=== PATIENT | female | born 1945 | race Caucasian/White ===

== ENCOUNTER 2018-02-22 14:25 | Inpatient (IN) ==
[2018-02-22] MEDS ORDERED: Naloxone 0.4 MG/ML INJ IVP PRN (16:07)
--- NOTE | 2018-02-22 16:23 | Pulmonology History & Physical ---
<Vilma Olsen M - Last Filed: 02/22/18 17:34> Date of Encounter: 02/22/18 History of Present Illness HPI: Ms. Romero is a 72 year old female Medications and Allergies Aspirin Enteric Coated [Aspirin EC] 81 mg PO DAILY #30 tablet.dr 12/13/15 [Rx] Furosemide [Lasix] 40 mg PO DAILY #30 tablet 12/13/15 [Rx] Metoprolol [Lopressor] 100 mg PO BID #60 tablet 12/13/15 [Rx] Diltiazem CD (24hr) [Cardizem CD] 120 mg PO DAILY #30 cap.er.24h 01/14/16 [Rx] Warfarin [Coumadin] 2.5 mg PO SUMOWETHFR 02/22/18 [History] Warfarin [Coumadin] 5 mg PO TUSA 02/22/18 [History] 3 Allergy/AdvReac Type Severity Reaction Status Date / Time No Known Allergies Allergy Verified 12/11/15 18:23 All Systems: The remainder of the systems were reviewed and are negative Physical Examination Vital Signs: Vital Signs, Last 4 Hours Temp Pulse Resp BP Pulse Ox 02/22/18 16:50 25 99 02/22/18 16:32 97.1 F L 98 30 144/84 97 02/22/18 16:19 97.1 F L 34 134/85 94 02/22/18 16:11 98 Results - Laboratory Findings CBC and BMP: 02/22/18 16:32 02/22/18 16:32 PT/INR, D-dimer PT 11.8 Seconds (9.4-12.1) 02/22/18 16:32 Abnormal lab findings: Abnormal lab results WBC 24.7 K/mcL (4.3-11.1) H 02/22/18 16:32 RDW 17.1 % (11.5-14.5) H 02/22/18 16:32 Neutrophils # 23.1 K/mcL (1.6-8.9) H 02/22/18 16:32 Toxic Granulation Present (Not Present) A 02/22/18 16:32 Heparin Anti-Xa, Unfract 0.04 IU/mL (0.30-0.70) L 02/22/18 16:32 BUN 25 mg/dL (8-23) H 02/22/18 16:32 Est GFR ( Amer) 58 (> 60) L 02/22/18 16:32 Est GFR (Non-Af Amer) 48 (> 60) L 02/22/18 16:32 Glucose 131 mg/dL (70-105) H 02/22/18 16:32 Lactic Acid 2.4 mmol/L (0.5-2.2) H 02/22/18 16:32 Total Bilirubin 1.2 mg/dL (0.3-1.0) H 02/22/18 16:32 Globulin 3.6 g/dL (2.4-3.5) H 02/22/18 16:32 Albumin/Globulin Ratio 1.0 (1.1-2.2) L 02/22/18 16:32 - Attending Attestation I examined this patient and my medical decision-making was reviewed with the Resident Physician. I agree with the documented findings, disposition and treatment plan as described except to the extent set forth below. Patient seen and examined. Labs, radiology, chart personally reviewed. Agree with resident's history and physical, assessment, plan with following comments: DATA RECOVERY PLANNER: Patient follows commands, Pulmonary: Review chest x-ray with evidence of pulmonary edema and she is having acute hypoxic respiratory failure from that and she will need noninvasive ventilation. Cardiovascular: She needs to be on anticoagulation and cardiology is aware of patient. Since she has significant acute heart failure is not clear at this time with systolic or diastolic she will need rate control and anticoagulation. Patient was started on nitroglycerin drip and at this time is on hold and she is unlikely we will needed. GI: Nutrition per dietary and GI prophylaxis per routine Heme: DVT prophylaxis per routine ID: It is difficult to rule out pneumonia and empiric antibiotics will be considered. Renal; urine out put and renal funtion reviewed Endorcine: blood glucose is monitored Lines: all lines checked and no evidence of infections Skin: skin care to prevent pressure ulcers per nursing routine care Due to patient's underlying cardiac disease her condition could deteriorate and she will need ICU monitoring. I spent 35 min of Critical Care time with this patient. It involved decision making of high complexity to assess, manipulate, and support vital organ system failure and/or to prevent further life threatening deterioration of the patient' s condition. The time involved in the performance of separately reportable procedures was not counted toward critical care time. <Jayjay Liu - Last Filed: 02/22/18 22:01> Date of Encounter: 02/22/18 Time of Encounter: 04:00 Assessment and Plan (1) Acute respiratory failure Current visit: Yes Status: Acute - Patient came in from [facility] because of acute respiratory failure. - This could be secondary to her acute exacerbation of CHF. - patient currently does not endorse orthopnea, or HERNANDEZ - Patient currently on BiPAP with FiO2 of 60%. Qualifiers: Qualified Code(s): J96.01 - Acute respiratory failure with hypoxia (2) Acute on chronic diastolic CHF (congestive heart failure) Current visit: Yes Status: Acute - Patient has a known history of congestive heart failure. - She takes 40 mg by mouth Lasix and metoprolol(100g) at home - Patient endorses symptoms of dyspnea on exertion for the past few days . She came to the [facility] ED this morning with respiratory distress. - BNP at [facility] ~9000 , Repeat BNP: 624 Patient TSH was elevated 5.120, Echo pending , Trops : 0.05 - Currently on IV Lasix 40 mg, Strict Is/Os. (3) Atrial fibrillation with rapid ventricular response Current visit: No Status: Acute - Patient has a history of A. fib RVR. She takes 240 by mouth Cardizem at home. Takes Coumadin at home. - She endorses she took one pill of Cardizem 240 this morning. - Her CHADVaSc2 score is 4. Currently on heparin for anticoagulation. We are holding off on her Coumadin. - As per recommendation of cardiology, patient is getting amiodarone 150mg IV bolus , followed by drip 1/hr. (4) HTN (hypertension) Current visit: No Status: Acute -Patient has a past medical history of hypertension. - continue her home medication Qualifiers: Hypertension type: essential hypertension Qualified Code(s): I10 - Essential (primary) hypertension (5) DVT prophylaxis Current visit: Yes Status: Acute on heparin History of Present Illness Chief complaint: CHF exacerbation HPI: Ms. Romero is a 72 year old female with a past medical history of atrial fibrillation, congestive heart failure, hypertension and mitral valve stenosis who has been transferred from [facility] because of respiratory distress. Patient is a poor historian but endorses that she was extremely short of breath just prior to arrival to the ER. Initial workup in the [facility] ER showed her NT proBNP was 9908.8 . Her ABG was pH 7.32, PCO2 45, HCO3- 23.2. Troponins were negative , but had elevated lactic acid : 3.5 and TSH: 5.120. Patient has a known history of CHF and is on 40 mg home Lasix. She aslo has a Hx of AFib and takes Cardizem and Warfarin at home . She says she sees for her cardiac workup. I do not see a recent Echocardiogram or any Hx of heart cath in the alst 2 years. Patient has a Hx of HTN. Her echocardiogram is pending. She endorses she has been lately feeling dyspnic for the past few days. She was in the garden yesterday when she felt very short of breath. She denies any orthopnea, paroxysmal nocturnal dyspnea. She also endorses having a constant dry, nonproductive cough for the past few days. Denies any other systemic signs like fever, chills, numbness or tingling in her extremities. Cardiology has been consulted for management of the patient. Past Med Surg Social Fam HX - Past Medical History Medical history: atrial fibrillation, CHF, hypertension, valvular heart disease Psychiatric history: no psych history - Past Surgical History Surgical History: other Additional surgical history: Tubal Ligation - Social History Smoking Status: Never smoker Smokeless Tobacco Status: No Alcohol use: none Drug use: none - Family History Father Adopted: No Living Status: Hx Family Cardiac Disorders: Yes All Systems: The remainder of the systems were reviewed and are negative - Constitutional Constitutional: as per HPI - Cardiovascular Cardiovascular: as per HPI - Respiratory Respiratory: as per HPI - Gastrointestinal Gastrointestinal: as per HPI Physical Examination Vital Signs: Vital Signs, Last 4 Hours Temp Resp BP Pulse Ox 02/22/18 16:19 97.1 F L 34 134/85 94 General appearance: no acute distress Effort: mildly labored Auscultation: bilateral: wheezes, rales Percussion: bilateral: not dull Cardiovascular: irregular rhythm (no gallops, murmrus or rubs) Gastrointestinal: soft, non-tender, non-distended Extremities: no edema, pink and warm, no ischemia or petechiae Results - Laboratory Findings CBC and BMP: 02/22/18 16:32 02/22/18 16:32
[2018-02-22 16:50] LABS: Basophils # 0.1 K/mcL (0.0-0.2); Basophils % 0.2 %; Hematocrit 40.3 % (35.3-44.9); Hemoglobin 13.2 g/dL (11.5-15.4); Immature Granulocytes % 0.6 % (0-4); Lymphocytes # 0.6 K/mcL (0.6-4.6); Lymphocytes % 2.5 %; Mean Corpuscular HGB Conc 32.8 g/dL (31.6-35.5); Mean Corpuscular Volume 91.6 fL (83.0-100.0); Mean Platelet Volume 9.6 fL (9.4-12.4); Monocytes # 0.8 K/mcL (0.0-1.3); Monocytes % 3.1 %; Platelet Count 304 K/mcL (140-400); Red Cell Distribution Width 17.1 % (11.5-14.5); Segmented Neutrophils % 93.6 %
[2018-02-22] MEDS ORDERED: Potassium Phosphate 44 MEQ in 0.9 % Sodium Chloride 250 ML IVPB PRN (16:53)
[2018-02-22 16:57] LABS: Neutrophils # 23.1 K/mcL (1.6-8.9)
[2018-02-22 16:58] LABS: Prothrombin Time 11.8 Seconds (9.4-12.1)
[2018-02-22] MEDS ORDERED: Furosemide 240 MG in D5% in Water 96 ML IVC SCH (17:00)
[2018-02-22] MEDS ORDERED: *HR* Heparin 5,000 UNIT/ML VIAL IVP PRN ×2 (17:04)
[2018-02-22] MEDS ORDERED: *HR* Heparin 5,000 UNIT/ML VIAL IVP ONE (17:04)
[2018-02-22 17:11] LABS: Albumin 3.7 g/dL (3.5-5.7); Bilirubin,Total 1.2 mg/dL (0.3-1.0); Calcium 9.4 mg/dL (8.6-10.3); Globulin 3.6 g/dL (2.4-3.5); Potassium 3.5 mEq/L (3.5-5.1); Total Protein 7.3 g/dL (6.4-8.9)
[2018-02-22] MEDS ORDERED: Heparin 25,000 UNIT/500 ML D5W 25,000 UNIT/500 ML BAG IVC SCH (17:15)
[2018-02-22 17:16] LABS: Toxic Granulation Present (Not Present)
[2018-02-22 17:25] LABS: Heparin anti-factor XA UFH 0.04 IU/mL (0.30-0.70)
[2018-02-22] MEDS ORDERED: Amiodarone Premix 150 MG/100 ML BAG IVPB ONE (17:31)
[2018-02-22] MEDS ORDERED: Amiodarone Premix 360 MG/200 ML BAG IVC ONE (17:31)
[2018-02-22 17:49] LABS: VBG Ionized Calcium 1.07 mmol/L (1.15-1.35)
[2018-02-22] MEDS: Amiodarone Premix 360 MG/200 ML BAG IVC SCH ×2 (17:53→23:44)
[2018-02-22 18:09] LABS: Troponin I 0.05 ng/mL (< 0.04)
--- NOTE | 2018-02-22 20:11 | Sepsis Event Note ---
Sepsis Reassessment Note - Evaluation Sepsis Screen: Sepsis Risk Current Stage of Sepsis: severe sepsis Possible Source of Sepsis: pulmonary - Focused Exam Date of Encounter: 02/22/18 Time of Encounter: 20:11 Vital Signs: Vital Signs Temp Pulse Resp BP Pulse Ox 02/22/18 20:00 86 32 139/107 97 02/22/18 19:00 97.6 F 87 32 140/89 94 02/22/18 18:00 86 30 147/108 94 02/22/18 16:50 25 99 02/22/18 16:32 97.1 F L 98 30 144/84 97 02/22/18 16:19 97.1 F L 34 134/85 94 02/22/18 16:11 98 Respiratory Exam: Present: wheezes, rales. Absent: respiratory distress Cardiovascular Exam: Present: irregulary irregular, S1, S2 Capillary Refill: < 2 seconds Peripheral Pulse Strength: 3+ normal Peripheral Pulse Location: Radial Skin Exam: normal turgor
[2018-02-22] MEDS ORDERED: Levofloxacin 750 MG/150 ML 750 MG/150 ML BAG IVPB SCH (21:00)
[2018-02-23 04:58] LABS: ABG Base Excess 5 mEq/L (-2 to 3); ABG HCO3 29 mEq/L (21-27); ABG Oxygen Saturation 99 % (95-98); ABG PCO2 39 mmHg (35-45); ABG PH 7.47 pH Units (7.32-7.45); ABG PO2 114 mmHg (85-104); ABG TCO2 30 mEq/L (20-26)
[2018-02-23 05:35] LABS: Basophils % 0.1 %; Eosinophils % 0.1 %; Hematocrit 39.3 % (35.3-44.9); Hemoglobin 12.7 g/dL (11.5-15.4); Immature Granulocytes % 0.5 % (0-4); Lymphocytes # 0.9 K/mcL (0.6-4.6); Lymphocytes % 5.5 %; Mean Corpuscular HGB Conc 32.3 g/dL (31.6-35.5); Mean Corpuscular Hemoglobin 29.4 pg (28.0-33.3); Mean Platelet Volume 9.9 fL (9.4-12.4); Monocytes # 0.6 K/mcL (0.0-1.3); Monocytes % 3.3 %; Neutrophils # 15.3 K/mcL (1.6-8.9); Platelet Count 268 K/mcL (140-400); Red Blood Count 4.32 M/mcL (3.82-4.97); Segmented Neutrophils % 90.5 %
[2018-02-23 05:38] LABS: VBG Ionized Calcium 1.06 mmol/L (1.15-1.35)
[2018-02-23 05:55] LABS: Phosphorous 3.5 mg/dL (2.7-4.5)
[2018-02-23 06:02] LABS: Alanine Aminotransferase 6 Units/L (7-52); Albumin 3.7 g/dL (3.5-5.7); Alkaline Phosphatase 84 Units/L (34-104); Aspartate Amino Transferase 14 Units/L (13-39); BUN/Creatinine Ratio 19 (6-26); Bilirubin,Total 0.9 mg/dL (0.3-1.0); Blood Urea Nitrogen 20 mg/dL (8-23); Calcium 9.2 mg/dL (8.6-10.3); Carbon Dioxide 27 mEq/L (23-29); Chloride 103 mEq/L (98-107); Globulin 3.8 g/dL (2.4-3.5); Glucose 109 mg/dL (70-105); Osmolality,Calculated 277 (280-300); Potassium 3.7 mEq/L (3.5-5.1); Sodium 132 mEq/L (136-145); Total Protein 7.5 g/dL (6.4-8.9); eGFR For Non-African Americans 53 (> 60)
--- NOTE | 2018-02-23 07:22 | Pulmonology Progress Note ---
<Vilma Olsen M - Last Filed: 02/23/18 08:49> Date of Encounter: 02/23/18 Objective PUL Vital signs: Last Vital Signs Temp 97.5 F L 02/23/18 07:39 Pulse 96 02/23/18 08:00 Resp 20 02/23/18 08:00 BP 129/101 02/23/18 08:00 Pulse Ox 96 02/23/18 08:00 Results - Laboratory Findings CBC and BMP: 02/23/18 05:04 02/23/18 05:04 ABG ABG pH 7.47 pH Units (7.32-7.45) H 02/23/18 04:55 ABG pCO2 39 mmHg (35-45) 02/23/18 04:55 ABG pO2 114 mmHg (85-104) H 02/23/18 04:55 ABG O2 Saturation 99 % (95-98) H 02/23/18 04:55 PT/INR, D-dimer PT 11.8 Seconds (9.4-12.1) 02/22/18 16:32 Abnormal lab findings: Abnormal lab results WBC 16.9 K/mcL (4.3-11.1) H 02/23/18 05:04 RDW 17.0 % (11.5-14.5) H 02/23/18 05:04 Neutrophils # 15.3 K/mcL (1.6-8.9) H 02/23/18 05:04 Toxic Granulation Present (Not Present) A 02/22/18 16:32 Heparin Anti-Xa, Unfract 0.21 IU/mL (0.30-0.70) L 02/23/18 05:04 ABG pH 7.47 pH Units (7.32-7.45) H 02/23/18 04:55 ABG pO2 114 mmHg (85-104) H 02/23/18 04:55 ABG HCO3 29 mEq/L (21-27) H 02/23/18 04:55 ABG Total CO2 30 mEq/L (20-26) H 02/23/18 04:55 ABG O2 Saturation 99 % (95-98) H 02/23/18 04:55 ABG Base Excess 5 mEq/L (-2 to 3) H 02/23/18 04:55 Sodium 132 mEq/L (136-145) L 02/23/18 05:04 Est GFR (Non-Af Amer) 53 (> 60) L 02/23/18 05:04 Glucose 109 mg/dL (70-105) H 02/23/18 05:04 POC Glucose 117 mg/dL (70-99) H 02/22/18 23:42 Calculated Osmolality 277 (280-300) L 02/23/18 05:04 Venous Ioniz Calcium 1.06 mmol/L (1.15-1.35) L 02/23/18 05:33 ALT 6 Units/L (7-52) L 02/23/18 05:04 Troponin I 0.05 ng/mL (< 0.04) H* 02/22/18 17:12 B-Natriuretic Peptide 624 pg/mL (Less than 100) H 02/22/18 17:12 Globulin 3.8 g/dL (2.4-3.5) H 02/23/18 05:04 Albumin/Globulin Ratio 1.0 (1.1-2.2) L 02/23/18 05:04 - Microbiology Findings Microbiology Findings: Microbiology, Last 48 Hours 02/22/18 17:12 Blood Culture - Preliminary Peripheral Venipuncture Culture is incubating and being continuously monitored for growth. Final report to follow. 02/22/18 17:01 Blood Culture - Preliminary Peripheral Venipuncture Culture is incubating and being continuously monitored for growth. Final report to follow. - Clinical Findings Intake & Output: Intake & Output 02/22/18 02/23/18 02/23/18 23:59 07:59 15:59 Intake Total 450 / 450 641 / 641 240 / 240 Output Total 1950 / 1950 2300 / 2300 Balance -1500 / -1500 -1659 / -1659 240 / 240 Weight 48 kg Consult Discharge Plan - Plan Referrals: NONE,PCP [Primary Care Provider] - - Attending Attestation I examined this patient and my medical decision-making was reviewed with the Resident Physician. I agree with the documented findings, disposition and treatment plan as described except to the extent set forth below. Patient seen and examined. Labs, radiology, chart personally reviewed. Agree with resident's history and physical, assessment, plan with following comments: PASSENGER RATE CLERK: Patient follows commands, Pulmonary: Acceptable oxygenation and ventilation. Clinically pulmonary edema is improved and continue to wean off FiO2 Cardiovascular: Plan to resume home medication and waiting for cardiology recommendation. GI: Nutrition per dietary and GI prophylaxis per routine Heme: DVT prophylaxis per routine ID: Continue antibiotics and plan to de-escalation. Unlikely pneumonia and stop antibiotic Renal; urine out put and renal funtion reviewed Endorcine: blood glucose is monitored Lines: all lines checked and no evidence of infections Skin: skin care to prevent pressure ulcers per nursing routine care Most likely will transfer to floor if able to be off drips. <Mirella Liubh - Last Filed: 02/23/18 20:41> Date of Encounter: 02/23/18 Time of Encounter: 07:30 Assessment and Plan (1) Acute respiratory failure Current Visit: Yes Status: Acute - Patient came from [facility] because of acute respiratory failure. - This is likely due to her Acute on chronic CHF. - Patient currently hemodynamically stable- does not endorse orthopnea, HERNANDEZ or paroxysmal nocturnal dyspnea - Patient currently off the BiPAP-on 5L NC. Qualifiers: Respiratory failure complication: hypoxia Qualified Code(s): J96.01 - Acute respiratory failure with hypoxia (2) Acute on chronic diastolic CHF (congestive heart failure) Current Visit: Yes Status: Acute - Patient has a known history of congestive heart failure. - BNP at [facility] ~9000 , Repeat BNP: 624 Patient TSH was elevated 5.120, Echo on 02/22/18 showed EF of 60% with severe mitral stenosis , Trops : 0.05 - Patient was admitted due to HERNANDEZ, currently stable - no dyspnea, orthopnea or aproxysmal nocturnal dyspnea - Currently on home Lasix PO 40 mg BID, Cumulative Is/Os: 2191/5150. SpO2 96% (3) Atrial fibrillation with rapid ventricular response Current Visit: No Status: Acute - Patient was in A. fib RVR when she was admitted. She was rate controlled on Amodarone overnight . - Her RVR could be due to her pulmonary edema secondary to her acute on chronic CHF - She's back to her baseline Afib. As per Cardiology the plan is to put her back on Cardizem 30 mg q6h with outpatient continuation. - Her CHADVaSc2 score is 4. Currently on heparin for anticoagulation. Will hold her heparin at midnight for an EGD tomorrow - F/u with Dr Sevilla for a her Hx of severe valvular disease. (4) Dysphagia Current Visit: Yes Status: Acute - patient endorses having difficulty swallowing solid food - she has a previous diagnosis of esophageal web years ago. 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 - Patient is scheduled for her EGD tomorrow morning. We will discontinue her heparin drip at midnight. Qualifiers: Dysphagia type: esophageal phase Qualified Code(s): R13.10 - Dysphagia, unspecified (5) HTN (hypertension) Current Visit: No Status: Acute -Patient has a past medical history of hypertension. - continue her home medication Qualifiers: Hypertension type: essential hypertension Qualified Code(s): I10 - Essential (primary) hypertension (6) DVT prophylaxis Current Visit: Yes Status: Acute on heparin Subjective Principal diagnosis: CHF Interval history: No acute events overnight. Patient is no more in RVR today. She was rate controlled overnight on amiodarone 150 mg bolus with 1 per hour. She endorses no dyspnea, orthopnea, paroxysmal nocturnal dyspnea. No pedal edema appreciated. Patient complaining of not being able to swallow food this morning. She was diagnosed with esophageal web in 2016, and was supposed to follow-up for an EGD but she never did owing to insurance issues. I spoke to GI this morning and a consult has been placed, and she is scheduled for an EGD sometime tomorrow. we are going to see her heparin drip at midnight so she can have a procedure tomorrow morning. She is currently on mechanical altered textures and liquid diet . We are going to start her back on her home medications Lopressor, Cardizem Objective PUL Vital signs: Last Vital Signs Temp 97.8 F 02/23/18 04:00 Pulse 87 02/23/18 07:00 Resp 18 02/23/18 07:00 BP 144/101 02/23/18 07:00 Pulse Ox 94 02/23/18 07:00 General appearance: no acute distress, alert Effort: normal Auscultation: bilateral: clear (no rales, wheezing or ronchi) Percussion: bilateral: not dull Cardiovascular: irregular rhythm (baseline A Fib, no gallops, murmurs or rubs) Gastrointestinal: soft, non-tender, non-distended Extremities: no cyanosis, no edema, pink and warm Results - Laboratory Findings CBC and BMP: 02/23/18 05:04 02/23/18 05:04 ABG ABG pH 7.47 pH Units (7.32-7.45) H 02/23/18 04:55 ABG pCO2 39 mmHg (35-45) 02/23/18 04:55 ABG pO2 114 mmHg (85-104) H 02/23/18 04:55 ABG O2 Saturation 99 % (95-98) H 02/23/18 04:55 PT/INR, D-dimer PT 11.8 Seconds (9.4-12.1) 02/22/18 16:32 Abnormal lab findings: Abnormal lab results WBC 16.9 K/mcL (4.3-11.1) H 02/23/18 05:04 RDW 17.0 % (11.5-14.5) H 02/23/18 05:04 Neutrophils # 15.3 K/mcL (1.6-8.9) H 02/23/18 05:04 Toxic Granulation Present (Not Present) A 02/22/18 16:32 Heparin Anti-Xa, Unfract 0.21 IU/mL (0.30-0.70) L 02/23/18 05:04 ABG pH 7.47 pH Units (7.32-7.45) H 02/23/18 04:55 ABG pO2 114 mmHg (85-104) H 02/23/18 04:55 ABG HCO3 29 mEq/L (21-27) H 02/23/18 04:55 ABG Total CO2 30 mEq/L (20-26) H 02/23/18 04:55 ABG O2 Saturation 99 % (95-98) H 02/23/18 04:55 ABG Base Excess 5 mEq/L (-2 to 3) H 02/23/18 04:55 Sodium 132 mEq/L (136-145) L 02/23/18 05:04 Est GFR (Non-Af Amer) 53 (> 60) L 02/23/18 05:04 Glucose 109 mg/dL (70-105) H 02/23/18 05:04 POC Glucose 117 mg/dL (70-99) H 02/22/18 23:42 Calculated Osmolality 277 (280-300) L 02/23/18 05:04 Venous Ioniz Calcium 1.06 mmol/L (1.15-1.35) L 02/23/18 05:33 ALT 6 Units/L (7-52) L 02/23/18 05:04 Troponin I 0.05 ng/mL (< 0.04) H* 02/22/18 17:12 B-Natriuretic Peptide 624 pg/mL (Less than 100) H 02/22/18 17:12 Globulin 3.8 g/dL (2.4-3.5) H 02/23/18 05:04 Albumin/Globulin Ratio 1.0 (1.1-2.2) L 02/23/18 05:04 - Microbiology Findings Microbiology Findings: Microbiology, Last 48 Hours 02/22/18 17:12 Blood Culture - Preliminary Peripheral Venipuncture Culture is incubating and being continuously monitored for growth. Final report to follow. 02/22/18 17:01 Blood Culture - Preliminary Peripheral Venipuncture Culture is incubating and being continuously monitored for growth. Final report to follow. - Clinical Findings Intake & Output: Intake & Output 02/22/18 02/22/18 02/23/18 15:59 23:59 07:59 Intake Total 450 / 450 560 / 560 Output Total 1950 / 1950 1350 / 1350 Balance -1500 / -1500 -790 / -790 Weight 48 kg
[2018-02-23] MEDS ORDERED: Aspirin 81 MG TAB.CHEW PO SCH (09:00)
[2018-02-23] MEDS ORDERED: Aspirin Enteric Coated 81 MG Tablet PO SCH (09:00)
--- NOTE | 2018-02-23 10:46 | Cardiology Consult Note ---
<Lashon Jonas - Last Filed: 02/23/18 13:57> Date of Encounter: 02/23/18 Time of Encounter: 10:36 Assessment and Plan (1) Acute on chronic diastolic CHF (congestive heart failure) Current Visit: Yes Status: Acute Patient presenting with respiratory distress with BNP at [facility] noted to be at 9000, admission labs shows BNP at 624, troponin 0.05. Patient currently stable, denies orthopnea, PND, pedal edema. Echocardiogram on 02/22/18 showed EF of 60%, severe mitral stenosis, moderate mitral regurgitation, moderate to severe TR, severe pulmonary htn, severe dilated left atrium Continue lasix, has been taken off bipap now on 5L NC, satting at 96%. continue strict I/O's (2) Atrial fibrillation with rapid ventricular response Current Visit: No Status: Acute Patient presented on 02/22/18 with atrial fibrillation with RVR, chronic atrial fibrillation. Currently, stable with asymptomatic atrial fibrillation, rate of 80 bpm. Most likely due to severe valvular disease with severe dilation of left atrium with chronic atrial fibrillation and chronic heart failure causing pulmonary edema/ acute exacerbation of HF [id number] score of 5, significant for age, sex, and medical hx. Patient on home Cardizem 120mg daily, was placed on amiodarone, agree with stopping amiodarone now. Recommend starting Cardizem 30 mg q6h with outpatient continuation, Cardizem 120mg qd. Patient on warfarin at home, was placed on heparin drip. Recommend switching to PO Coumadin per PT. Will check TSH, pending Outpatient follow up recommended, known patient of Dr. Franks, for severe valvular disease. Discussion w patient/family: The assessment and plan as outlined above was discussed with the patient and/or family members who expressed understanding and agreement. All questions were answered. Thank you for involving us in the care of your patient. Please call with any questions. History of Present Illness Consult date: 02/23/18 Requesting physician: Vilma Olsen Consult reason: Acute on chronic diastolic heart failure and Atrial fibrillation with RVR Chief complaint: Acute respiratory failure History of present illness: Ms. Romero is a 72 year old female consulted to cardiology for acute on chronic diastolic heart failure with atrial fibrillation with RVR. Patient was transferred from [facility] for respiratory distress that had been ongoing for the past few days, worsening yesterday. She states that she had been having shortness of breath with rest and exertion, with associated cough with purulent sputum. She denies chest pain, PND, orthopnea, lower extremity swelling. She states that she regularly misses her medications twice per week. Patient states that she is always in atrial fibrillation but is typically asymptomatic. Has been in atrial fibrillation with RVR in the past. At [facility], patients BNP was noted to be 9000. On admission patient was found to be in respiratory failure with acute on chronic DCHF and was found to be in afib with RVR, patient was placed on bipap, lasix, placed on amiodarone 150 bolus with 1/hr and has been rate controlled, continues to be in atrial fibrillation. BNP was 624, troponin was 0.05, with WBC elevated at 16.9. Magnesium was 2.0, K at 3.7. CXR showed perihilar airspace disease, right greater than left, suggestive of pulmonary edema. INR today is 1.0. Cardiac cath performed 01/14/16 showed moderate pulmonary hypertension and increased right atrial pressure. Cardiac cath on 12/18/15 showed mild CAD and EF of 60%, with left main LMCA 0%, LAD 30%, 1st diagonal 40%, LCA 0%/ RCA 30%. Echocardiogram 12/12/15 showed severe mitral stenosis and severe dilated left atrium. Today, patient is sitting comfortably in the chair and denies symptoms of chest pain or shortness of breath. She is currently on 5L NC, denies home oxygen. Patient currently rate controlled but continues to be in atrial fibrillation. Past Med Surg Social Fam HX - Past Medical History Medical history: atrial fibrillation, CHF, hypertension, valvular heart disease Psychiatric history: no psych history - Past Surgical History Surgical History: other Additional surgical history: Tubal Ligation - Social History Smoking Status: Never smoker Smokeless Tobacco Status: No Alcohol use: none Drug use: none - Family History Father Adopted: No Living Status: Hx Family Cardiac Disorders: Yes Medications and Allergies Aspirin Enteric Coated [Aspirin EC] 81 mg PO DAILY #30 tablet. 12/13/15 [Rx] Furosemide [Lasix] 40 mg PO DAILY #30 tablet 12/13/15 [Rx] Metoprolol [Lopressor] 100 mg PO BID #60 tablet 05/21/16 [Rx] Diltiazem CD (24hr) [Cardizem CD] 120 mg PO DAILY #30 cap.er.24h 01/14/16 [Rx] Warfarin [Coumadin] 2.5 mg PO SUMOWETHFR 02/22/18 [History] Warfarin [Coumadin] 5 mg PO TUSA 02/22/18 [History] 3 Allergy/AdvReac Type Severity Reaction Status Date / Time No Known Allergies Allergy Verified 12/11/15 18:23 All Systems Review: The remainder of the systems were reviewed and are negative - Constitutional Constitutional: no anorexia, no chills, no fatigue, no fever(s), no headache(s) , no night sweats, no stops breathing during sleep, no weakness - EENT Eyes: no blurred vision, no loss of vision - Cardiovascular Cardiovascular: as per HPI, dyspnea at rest, dyspnea on exertion, irregular heart rhythm, no chest pain at rest, no chest pain with exertion, no diaphoresis , no radiating jaw, neck or arm pain, no leg edema, no lightheadedness, no orthopnea, no palpitations, no paroxysmal nocturnal dyspnea, no syncope - Respiratory Respiratory: cough, dyspnea, no hemoptysis, no wheezing - Gastrointestinal Gastrointestinal: no abdominal pain, no diarrhea, no hematemesis, no nausea - Integumentary Integumentary: no rash - Neurological Neurological: no dizziness, no focal weakness, no numbness, no syncope Physical Examination Vital Signs, Last 4 Hours Temp Pulse Resp BP Pulse Ox 02/23/18 10:00 89 20 99 02/23/18 09:00 80 20 133/93 99 02/23/18 08:00 96 20 129/101 96 02/23/18 07:56 74 02/23/18 07:39 97.5 F L 02/23/18 07:00 87 18 144/101 94 General: Conversant, No Apparent Distress HEENT: Atraumatic, Normocephaly, Mucus Membranes Moist Neck: No JVD, Normal carotid pulses Cardiac: Normal S1 and S2 (irregularly irregular, rate ot 80, diastolic murmur heard greatest at the LLSB) Lungs: Other (Few scattered rales bialteraly bases, no wheezing, full breath sounds) Neuro: Alert and responsive, No focal deficits noted Abdomen: Soft, Non-Tender Skin: No rashes noted on visualized skin Musculoskeletal: No Chest Wall Tenderness Extremities: No Clubbing, Normal Pulses, Other (+1 LE edema bilaterally) Results 02/23/18 05:04 02/23/18 05:04 Lab Results 02/22/18 02/22/18 02/22/18 16:32 16:32 16:32 WBC 24.7 H Hgb 13.2 Hct 40.3 Plt Count 304 INR 1.0 Sodium 140 Potassium 3.5 Chloride 102 Carbon Dioxide 28 BUN 25 H Creatinine 1.13 Glucose 131 H Calcium 9.4 Magnesium Total Bilirubin 1.2 H AST 14 ALT 8 Alkaline Phosphatase 84 Troponin I B-Natriuretic Peptide 02/22/18 02/22/18 02/23/18 17:12 17:12 05:04 WBC 16.9 H Hgb 12.7 Hct 39.3 Plt Count 268 INR Sodium Potassium Chloride Carbon Dioxide BUN Creatinine Glucose Calcium Magnesium 2.0 Total Bilirubin AST ALT Alkaline Phosphatase Troponin I 0.05 H* B-Natriuretic Peptide 624 H 02/23/18 05:04 WBC Hgb Hct Plt Count INR Sodium 132 L Potassium 3.7 Chloride 103 Carbon Dioxide 27 BUN 20 Creatinine 1.03 Glucose 109 H Calcium 9.2 Magnesium Total Bilirubin 0.9 AST 14 ALT 6 L Alkaline Phosphatase 84 Troponin I B-Natriuretic Peptide - Imaging and Cardiology Chest Xray: report reviewed Echo: report reviewed - EKG Interpretation EKG results cardiology: personally reviewed (EKG on 02/22/18 with rate of 107, shows to be in atrial fibrillation with RVR, no signs of acute ischemic changes) Consult Discharge Plan - Plan Referrals: NONE,PCP [Primary Care Provider] - <Omar Robbins - Last Filed: 02/23/18 15:57> Date of Encounter: 02/23/18 - Attending Attestation I examined this patient and my medical decision-making was reviewed with the Resident Physician. I agree with the documented findings, disposition and treatment plan as described except to the extent set forth below. Admitted with CHF likely secondary to AF with RVR and known severe MS. Would recommend rate control and anticoagulation, diuresis as you are doing. Outpt. workup for possible mitral valve surgery. Assessment and Plan Discussion w patient/family: The assessment and plan as outlined above was discussed with the patient and/or family members who expressed understanding and agreement. All questions were answered. Thank you for involving us in the care of your patient. Please call with any questions. History of Present Illness History of present illness: Ms. Romero is a 72 year old female All Systems Review: The remainder of the systems were reviewed and are negative Physical Examination Vital Signs, Last 4 Hours Pulse Resp BP Pulse Ox 02/23/18 14:00 88 18 131/92 98 02/23/18 13:00 79 18 135/92 96 02/23/18 12:00 78 18 137/93 97 Results 02/23/18 05:04 02/23/18 05:04 Lab Results 02/22/18 02/22/18 02/22/18 16:32 16:32 16:32 WBC 24.7 H Hgb 13.2 Hct 40.3 Plt Count 304 INR 1.0 Sodium 140 Potassium 3.5 Chloride 102 Carbon Dioxide 28 BUN 25 H Creatinine 1.13 Glucose 131 H Calcium 9.4 Magnesium Total Bilirubin 1.2 H AST 14 ALT 8 Alkaline Phosphatase 84 Troponin I B-Natriuretic Peptide TSH 02/22/18 02/22/18 02/23/18 17:12 17:12 05:04 WBC 16.9 H Hgb 12.7 Hct 39.3 Plt Count 268 INR Sodium Potassium Chloride Carbon Dioxide BUN Creatinine Glucose Calcium Magnesium 2.0 Total Bilirubin AST ALT Alkaline Phosphatase Troponin I 0.05 H* B-Natriuretic Peptide 624 H TSH 02/23/18 02/23/18 05:04 05:04 WBC Hgb Hct Plt Count INR Sodium 132 L Potassium 3.7 Chloride 103 Carbon Dioxide 27 BUN 20 Creatinine 1.03 Glucose 109 H Calcium 9.2 Magnesium Total Bilirubin 0.9 AST 14 ALT 6 L Alkaline Phosphatase 84 Troponin I B-Natriuretic Peptide TSH 3.139
[2018-02-23] MEDS ORDERED: Diltiazem CD (24hr) 120 MG CAPSULE PO SCH (11:15)
[2018-02-23 11:22] LABS: Thyroid Stimulating Hormone 3.139 mcIU/mL (0.340-5.600)
--- NOTE | 2018-02-23 12:40 | Gastroenterology Consult Note ---
<Ricarda Cheng M - Last Filed: 02/23/18 12:35> Date of Encounter: 02/23/18 Time of Encounter: 11:30 - Assessment and plan (1) Dysphagia Current Visit: Yes Status: Acute Assessment and plan: Pt admits to dysphagia for at least the past year. She denies EGD. Will proceed with EGD with possible dilation tomorrow. She is on heparin drip needs held at midnight, can start coumadin tomorrow. Qualifiers: Dysphagia type: esophageal phase Qualified Code(s): R13.10 - Dysphagia, unspecified - Time Spent With Patient Total time spent is greater than 50% in coordination of care (as documented) at patient's floor/unit and/or counseling patient: GI History of Present Illness - Data of Consult Patient: new to practice Consult date: 02/23/18 Requesting Physician: Hi Zamora - Consult Narrative Reason for consult: dysphagia History of present illness: Ms. Romero is a 72 year old female with a past medical history of atrial fibrillation, congestive heart failure, hypertension and mitral valve stenosis who has been transferred from [facility] because of respiratory distress. She was in the garden yesterday when she felt very short of breath. She denies any orthopnea, paroxysmal nocturnal dyspnea. She also endorses having a constant dry, nonproductive cough for the past few days. Denies any other systemic signs like fever, chills, numbness or tingling in her extremities. Pt is complaiining of dsphagia. She has a history of esophageal web but has not had EGD, therefore GI was consulted. According to nursing staff she did not follow up for EGD as she did not have insurance and had not been able to afford her maintenance medications as well. She states she has dysphagia with solid foods but is able to swallow liquids and soft foods. She denies GERD. She denies previous scopes. Past Med Surg Social Fam HX - Past Medical History Medical history: atrial fibrillation, CHF, hypertension, valvular heart disease Psychiatric history: no psych history - Past Surgical History Surgical History: other Additional surgical history: Tubal Ligation - Social History Smoking Status: Never smoker Smokeless Tobacco Status: No Alcohol use: none Drug use: none - Family History Father Adopted: No Living Status: Hx Family Cardiac Disorders: Yes Review of Systems: GI: as per [facility] GENERAL: denies fever or chills EYES: denies yellow discoloration ENT: see HPI CARDIO: denies chest pain, palpitations RESP: No Shortness of breath with exertion : denies change in color of urine NEURO: weakness HEME: Denies any bruising MS: denies joint pain, joint swelling or back pain. DERM: denies rash or itching PSYCH: Denies history of anxiety or depression - Constitutional Vitals: Temp Pulse Resp BP Pulse Ox 97.5 F L 78 18 137/93 97 02/23/18 07:39 02/23/18 12:00 02/23/18 12:00 02/23/18 12:00 02/23/18 12:00 Exam: CONSTITUTIONAL:~alert, no acute distress.~HEAD:~normocephalic.~EYES:~no jaundice.~NECK:~no obvious swelling.~HEART:~regular rate and rhythm, Murmur NOTED.~LUNGS:~bilateral POOR air entry.~ABDOMEN:~non distended, soft, non tender , no masses palpable, no organomegaly.~RECTAL EXAM:~Deferred.~EXTREMITIES:~no clubbing, cyanosis, 1+ ble edema.~SKIN:~no stigmata of chronic liver disease.~ NEUROLOGIC:~no obvious focal defect.~~~~ Results - Labs CBC & Chem 7: 02/23/18 05:04 02/23/18 05:04 Labs: Last Result Calcium 9.2 mg/dL (8.6-10.3) 02/23/18 05:04 Troponin I 0.05 ng/mL (< 0.04) H* 02/22/18 17:12 Entire Visit Hgb 12.7 g/dL (11.5-15.4) 02/23/18 05:04 Hct 39.3 % (35.3-44.9) 02/23/18 05:04 PT 11.8 Seconds (9.4-12.1) 02/22/18 16:32 Total Bilirubin 0.9 mg/dL (0.3-1.0) 02/23/18 05:04 AST 14 Units/L (13-39) 02/23/18 05:04 ALT 6 Units/L (7-52) L 02/23/18 05:04 - ABG ABG results: ABG ABG pH 7.47 pH Units (7.32-7.45) H 02/23/18 04:55 ABG pCO2 39 mmHg (35-45) 02/23/18 04:55 ABG pO2 114 mmHg (85-104) H 02/23/18 04:55 ABG O2 Saturation 99 % (95-98) H 02/23/18 04:55 PT/INR, D-dimer PT 11.8 Seconds (9.4-12.1) 02/22/18 16:32 - Impressions Impressions Chest X-Ray 02/22/18 16:08 IMPRESSION: Cardiomegaly with bilateral airspace disease, likely pulmonary edema. D/ / Yashira Stanton Cha, MD / Yashira Stanton Cha, MD Interpreting Provider: Yashira Stanton Cha, MD Echocardiogram 02/22/18 17:03 Impressions: LVEF 60%. Mild concentric left ventricular hypertrophy. Indeterminate diastolic function. Normal right ventricular size with mild reduction in function. Very severely dilated left atrium. Moderately dilated right atrium. Mild aortic regurgitation. Moderate mitral regurgitation. Severe mitral stenosis, MG 15 mmHg at 86 bpm. Moderate-severe tricuspid regurgitation. Mild pulmonic regurgitation. No evidence of PFO with agitated saline contrast. Estimated RVSP is 92 mmHg. Severe pulmonary hypertension. Left Ventricular Wall Motion: Rest Echo Findings The apex, apical anterior and apical lateral jimenez were not visualized. All other wall segments showed normal motion. Findings: Study Quality * Technically adequate exam. ECG Findings * Atrial fibrillation. Left Ventricle * LVEF 60%. * Mild concentric left ventricular hypertrophy. * Indeterminate diastolic function. Right Ventricle * Normal right ventricular size with mild reduction in function. Left Atrium * Very severely dilated left atrium. Right Atrium * Moderately dilated right atrium. Aortic Valve * Trileaflet aortic valve. * No aortic stenosis. * Mild aortic regurgitation. Mitral Valve * Moderate mitral regurgitation. * Severe mitral stenosis, MG 15 mmHg at 86 bpm. * Severely thickened/calcified mitral valve leaflets with severe restriction in leaflet excursion. Tricuspid Valve * Moderate-severe tricuspid regurgitation. * No tricuspid stenosis. * Mildly calcified leaflets. * Estimated RA pressure is 8 mmHg. * Estimated RVSP is 92 mmHg. * Severe pulmonary hypertension. Pulmonic Valve * Pulmonic valve is not well visualized. * No pulmonic stenosis. * Mild pulmonic regurgitation. Pulmonary Artery * Pulmonary artery not well visualized. Aorta * Normally sized aortic root. Pericardium * There is no pericardial effusion present. Interatrial Septum * No evidence of PFO by color Doppler. * No evidence of PFO with agitated saline contrast. IVC * < 50% respiratory change. * The IVC is not dilated. Chest X-Ray 02/23/18 06:08 IMPRESSION: No significant change in predominantly perihilar airspace disease, right greater than left, most compatible with pulmonary edema. D/ / Davey Rubio MD / Davey Rubio MD Interpreting Provider: Davey Rubio MD Consult Discharge Plan - Plan Referrals: NONE,PCP [Primary Care Provider] - <Imtiaz Sagastume - Last Filed: 02/23/18 17:39> Date of Encounter: 02/23/18 Time of Encounter: 13:00 - Time Spent With Patient Total time spent is greater than 50% in coordination of care (as documented) at patient's floor/unit and/or counseling patient: GI History of Present Illness - Data of Consult Requesting Physician: Hi Zamora - Consult Narrative History of present illness: Ms. Romero is a 72 year old female - Constitutional Vitals: Temp Pulse Resp BP Pulse Ox 98.8 F 89 16 137/83 95 02/23/18 16:40 02/23/18 16:40 02/23/18 16:40 02/23/18 16:40 02/23/18 16:40 Results - Labs CBC & Chem 7: 02/23/18 05:04 02/23/18 05:04 Labs: Last Result Calcium 9.2 mg/dL (8.6-10.3) 02/23/18 05:04 Troponin I 0.05 ng/mL (< 0.04) H* 02/22/18 17:12 Entire Visit Hgb 12.7 g/dL (11.5-15.4) 02/23/18 05:04 Hct 39.3 % (35.3-44.9) 02/23/18 05:04 PT 11.8 Seconds (9.4-12.1) 02/22/18 16:32 Total Bilirubin 0.9 mg/dL (0.3-1.0) 02/23/18 05:04 AST 14 Units/L (13-39) 02/23/18 05:04 ALT 6 Units/L (7-52) L 02/23/18 05:04 - ABG ABG results: ABG ABG pH 7.47 pH Units (7.32-7.45) H 02/23/18 04:55 ABG pCO2 39 mmHg (35-45) 02/23/18 04:55 ABG pO2 114 mmHg (85-104) H 02/23/18 04:55 ABG O2 Saturation 99 % (95-98) H 02/23/18 04:55 PT/INR, D-dimer PT 11.8 Seconds (9.4-12.1) 02/22/18 16:32 - Impressions Impressions Chest X-Ray 02/22/18 16:08 IMPRESSION: Cardiomegaly with bilateral airspace disease, likely pulmonary edema. D/ / Yashira Stanton Cha, MD / Yashira Stanton Cha, MD Interpreting Provider: Yashira Stanton Cha, MD Echocardiogram 02/22/18 17:03 Impressions: LVEF 60%. Mild concentric left ventricular hypertrophy. Indeterminate diastolic function. Normal right ventricular size with mild reduction in function. Very severely dilated left atrium. Moderately dilated right atrium. Mild aortic regurgitation. Moderate mitral regurgitation. Severe mitral stenosis, MG 15 mmHg at 86 bpm. Moderate-severe tricuspid regurgitation. Mild pulmonic regurgitation. No evidence of PFO with agitated saline contrast. Estimated RVSP is 92 mmHg. Severe pulmonary hypertension. Left Ventricular Wall Motion: Rest Echo Findings The apex, apical anterior and apical lateral jimenez were not visualized. All other wall segments showed normal motion. Findings: Study Quality * Technically adequate exam. ECG Findings * Atrial fibrillation. Left Ventricle * LVEF 60%. * Mild concentric left ventricular hypertrophy. * Indeterminate diastolic function. Right Ventricle * Normal right ventricular size with mild reduction in function. Left Atrium * Very severely dilated left atrium. Right Atrium * Moderately dilated right atrium. Aortic Valve * Trileaflet aortic valve. * No aortic stenosis. * Mild aortic regurgitation. Mitral Valve * Moderate mitral regurgitation. * Severe mitral stenosis, MG 15 mmHg at 86 bpm. * Severely thickened/calcified mitral valve leaflets with severe restriction in leaflet excursion. Tricuspid Valve * Moderate-severe tricuspid regurgitation. * No tricuspid stenosis. * Mildly calcified leaflets. * Estimated RA pressure is 8 mmHg. * Estimated RVSP is 92 mmHg. * Severe pulmonary hypertension. Pulmonic Valve * Pulmonic valve is not well visualized. * No pulmonic stenosis. * Mild pulmonic regurgitation. Pulmonary Artery * Pulmonary artery not well visualized. Aorta * Normally sized aortic root. Pericardium * There is no pericardial effusion present. Interatrial Septum * No evidence of PFO by color Doppler. * No evidence of PFO with agitated saline contrast. IVC * < 50% respiratory change. * The IVC is not dilated. Chest X-Ray 02/23/18 06:08 IMPRESSION: No significant change in predominantly perihilar airspace disease, right greater than left, most compatible with pulmonary edema. D/ / Davey Rubio MD / Davey Rubio MD Interpreting Provider: Davey Rubio MD - Attending Attestation I have personally performed a face to face evaluation on this patient. I have reviewed and agree with the care plan. History and Exam by me shows: Patient seen. Patient with complaint of dysphagia mostly for solid along with weight loss. Recommendation: EGD to rule out esophageal causes for her dysphagia. If no acute abnormality found then may need empiric dilation.
[2018-02-23] MEDS ORDERED: Heparin 25,000 UNIT/500 ML D5W 25,000 UNIT/500 ML BAG IVC SCH ×2 (13:18→14:30)
[2018-02-23] MEDS ORDERED: Naloxone 0.4 MG/ML INJ IVP PRN ×2 (13:18→14:23)
[2018-02-23] MEDS ORDERED: *HR* Heparin 5,000 UNIT/ML VIAL IVP PRN ×4 (13:18→14:22)
[2018-02-23] MEDS ORDERED: Potassium Phosphate 44 MEQ in 0.9 % Sodium Chloride 250 ML IVPB PRN (13:18)
[2018-02-23] MEDS ORDERED: Warfarin perPT PO PRN (18:00)
[2018-02-23] MEDS: Furosemide 40 MG TABLET PO SCH (22:08)
[2018-02-23] MEDS: Metoprolol 100 MG TABLET PO SCH (22:08)
--- NOTE | 2018-02-24 02:16 | Electrocardiograph Report ---
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
[2018-02-24 07:33] LABS: Basophils % 0.3 %; Eosinophils # 0.1 K/mcL (0.0-0.6); Eosinophils % 1.2 %; Hematocrit 37.5 % (35.3-44.9); Immature Granulocytes % 0.4 % (0-4); Lymphocytes # 0.8 K/mcL (0.6-4.6); Lymphocytes % 8.4 %; Mean Corpuscular Hemoglobin 29.2 pg (28.0-33.3); Mean Corpuscular Volume 91.2 fL (83.0-100.0); Mean Platelet Volume 10.1 fL (9.4-12.4); Monocytes # 0.6 K/mcL (0.0-1.3); Monocytes % 6.5 %; Neutrophils # 8.1 K/mcL (1.6-8.9); Platelet Count 279 K/mcL (140-400); Red Blood Count 4.11 M/mcL (3.82-4.97); Red Cell Distribution Width 17.2 % (11.5-14.5); Segmented Neutrophils % 83.2 %
[2018-02-24 07:50] LABS: BUN/Creatinine Ratio 23 (6-26); Blood Urea Nitrogen 24 mg/dL (8-23); Calcium 9.2 mg/dL (8.6-10.3); Carbon Dioxide 32 mEq/L (23-29); Chloride 98 mEq/L (98-107); Glucose 91 mg/dL (70-105); Osmolality,Calculated 288 (280-300); Potassium 3.7 mEq/L (3.5-5.1); Sodium 137 mEq/L (136-145); eGFR For Non-African Americans 53 (> 60)
[2018-02-24] MEDS ORDERED: *HR* Propofol 200 MG/20 ML VIAL IVP ONE (08:17)
[2018-02-24] MEDS ORDERED: Lidocaine -MPF 2% 2 ML VIAL ONE (08:17)
[2018-02-24] MEDS ORDERED: *HR* Etomidate 40 MG/20 ML VIAL IVP ONE (08:17)
[2018-02-24 08:33] LABS: INR 1.1
--- NOTE | 2018-02-24 08:59 | Anesthesia Evaluation PreOp ---
Date of Encounter: 02/24/18 Time of Encounter: 08:57 - Past History Planned Operation: EGD re: dysphagia Cardiac History: CHF, HTN, Hyperlipidemia, Arrhythmia (AFib w/ RVR. anticoagulated on Warfarin. 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 HX Other Medical History: Denies Any Significant HX Anesthesia History: No Prior Anesthetic Complications, Past Anesthesia (Tubal Ligation) Alcohol Use: none Drug use: none Medications and Allergies Aspirin Enteric Coated [Aspirin EC] 81 mg PO DAILY #30 tablet.dr 12/13/15 [Rx] Furosemide [Lasix] 40 mg PO DAILY #30 tablet 12/13/15 [Rx] Metoprolol [Lopressor] 100 mg PO BID #60 tablet 12/13/15 [Rx] Diltiazem CD (24hr) [Cardizem CD] 120 mg PO DAILY #30 cap.er.24h 01/14/16 [Rx] Warfarin [Coumadin] 2.5 mg PO SUMOWETHFR 02/22/18 [History] Warfarin [Coumadin] 5 mg PO TUSA 02/22/18 [History] 3 Allergy/AdvReac Type Severity Reaction Status Date / Time No Known Allergies Allergy Verified 12/11/15 18:23 - Meds/Allergy Pre-op Review Medications Reviewed: Yes Allergies Reviewed: Yes Beta Blockers on Current Med List: No Anesthesia Results - Labs 02/24/18 06:43 02/24/18 06:43 Laboratory Results WBC 9.8 K/mcL (4.3-11.1) 02/24/18 06:43 RBC 4.11 M/mcL (3.82-4.97) 02/24/18 06:43 Hgb 12.0 g/dL (11.5-15.4) 02/24/18 06:43 Hct 37.5 % (35.3-44.9) 02/24/18 06:43 MCV 91.2 fL (83.0-100.0) 02/24/18 06:43 MCH 29.2 pg (28.0-33.3) 02/24/18 06:43 MCHC 32.0 g/dL (31.6-35.5) 02/24/18 06:43 RDW 17.2 % (11.5-14.5) H 02/24/18 06:43 Plt Count 279 K/mcL (140-400) 02/24/18 06:43 MPV 10.1 fL (9.4-12.4) 02/24/18 06:43 Immature Gran % 0.4 % (0-4) 02/24/18 06:43 Seg Neutrophils % 83.2 % 02/24/18 06:43 Lymphocytes % 8.4 % 02/24/18 06:43 Monocytes % 6.5 % 02/24/18 06:43 Eosinophils % 1.2 % 02/24/18 06:43 Basophils % 0.3 % 02/24/18 06:43 Neutrophils # 8.1 K/mcL (1.6-8.9) 02/24/18 06:43 Lymphocytes # 0.8 K/mcL (0.6-4.6) 02/24/18 06:43 Monocytes # 0.6 K/mcL (0.0-1.3) 02/24/18 06:43 Eosinophils # 0.1 K/mcL (0.0-0.6) 02/24/18 06:43 Basophils # 0.0 K/mcL (0.0-0.2) 02/24/18 06:43 Toxic Granulation Present (Not Present) A 02/22/18 16:32 PT 12.0 Seconds (9.4-12.1) 02/24/18 08:07 INR 1.1 02/24/18 08:07 Heparin Anti-Xa, Unfract 0.27 IU/mL (0.30-0.70) L 02/23/18 18:45 Sample Site L Brach 02/23/18 04:55 ABG pH 7.47 pH Units (7.32-7.45) H 02/23/18 04:55 ABG pCO2 39 mmHg (35-45) 02/23/18 04:55 ABG pO2 114 mmHg (85-104) H 02/23/18 04:55 ABG HCO3 29 mEq/L (21-27) H 02/23/18 04:55 ABG Total CO2 30 mEq/L (20-26) H 02/23/18 04:55 ABG O2 Saturation 99 % (95-98) H 02/23/18 04:55 ABG Base Excess 5 mEq/L (-2 to 3) H 02/23/18 04:55 Dutch Test N/A 02/23/18 04:55 O2 Delivery Device BiPAP 02/23/18 04:55 Inspired O2 60.0 (1-15=lpm ix75-310=%) 02/23/18 04:55 Sodium 137 mEq/L (136-145) 02/24/18 06:43 Potassium 3.7 mEq/L (3.5-5.1) 02/24/18 06:43 Chloride 98 mEq/L (98-107) 02/24/18 06:43 Carbon Dioxide 32 mEq/L (23-29) H 02/24/18 06:43 BUN 24 mg/dL (8-23) H 02/24/18 06:43 Creatinine 1.03 mg/dL (0.60-1.20) 02/24/18 06:43 Est GFR ( Amer) > 60 (> 60) 02/24/18 06:43 Est GFR (Non-Af Amer) 53 (> 60) L 02/24/18 06:43 BUN/Creatinine Ratio 23 (6-26) 02/24/18 06:43 Glucose 91 mg/dL (70-105) 02/24/18 06:43 POC Glucose 117 mg/dL (70-99) H 02/22/18 23:42 Calculated Osmolality 288 (280-300) 02/24/18 06:43 Lactic Acid 1.7 mmol/L (0.5-2.2) 02/22/18 20:16 Calcium 9.2 mg/dL (8.6-10.3) 02/24/18 06:43 Venous Ioniz Calcium 1.06 mmol/L (1.15-1.35) L 02/23/18 05:33 Phosphorus 3.5 mg/dL (2.7-4.5) 02/23/18 05:04 Magnesium 2.0 mg/dL (1.6-2.6) 02/22/18 17:12 Total Bilirubin 0.9 mg/dL (0.3-1.0) 02/23/18 05:04 AST 14 Units/L (13-39) 02/23/18 05:04 ALT 6 Units/L (7-52) L 02/23/18 05:04 Alkaline Phosphatase 84 Units/L (34-104) 02/23/18 05:04 Troponin I 0.05 ng/mL (< 0.04) H* 02/22/18 17:12 B-Natriuretic Peptide 624 pg/mL (Less than 100) H 02/22/18 17:12 Serum Total Protein 7.5 g/dL (6.4-8.9) 02/23/18 05:04 Albumin 3.7 g/dL (3.5-5.7) 02/23/18 05:04 Globulin 3.8 g/dL (2.4-3.5) H 02/23/18 05:04 Albumin/Globulin Ratio 1.0 (1.1-2.2) L 02/23/18 05:04 TSH 3.139 mcIU/mL (0.340-5.600) 02/23/18 05:04 Impressions Echocardiogram 02/22/18 17:03 Impressions: LVEF 60%. Mild concentric left ventricular hypertrophy. Indeterminate diastolic function. Normal right ventricular size with mild reduction in function. Very severely dilated left atrium. Moderately dilated right atrium. Mild aortic regurgitation. Moderate mitral regurgitation. Severe mitral stenosis, MG 15 mmHg at 86 bpm. Moderate-severe tricuspid regurgitation. Mild pulmonic regurgitation. No evidence of PFO with agitated saline contrast. Estimated RVSP is 92 mmHg. Severe pulmonary hypertension. Left Ventricular Wall Motion: Rest Echo Findings The apex, apical anterior and apical lateral jimenez were not visualized. All other wall segments showed normal motion. Findings: Study Quality * Technically adequate exam. ECG Findings * Atrial fibrillation. Left Ventricle * LVEF 60%. * Mild concentric left ventricular hypertrophy. * Indeterminate diastolic function. Right Ventricle * Normal right ventricular size with mild reduction in function. Left Atrium * Very severely dilated left atrium. Right Atrium * Moderately dilated right atrium. Aortic Valve * Trileaflet aortic valve. * No aortic stenosis. * Mild aortic regurgitation. Mitral Valve * Moderate mitral regurgitation. * Severe mitral stenosis, MG 15 mmHg at 86 bpm. * Severely thickened/calcified mitral valve leaflets with severe restriction in leaflet excursion. Tricuspid Valve * Moderate-severe tricuspid regurgitation. * No tricuspid stenosis. * Mildly calcified leaflets. * Estimated RA pressure is 8 mmHg. * Estimated RVSP is 92 mmHg. * Severe pulmonary hypertension. Pulmonic Valve * Pulmonic valve is not well visualized. * No pulmonic stenosis. * Mild pulmonic regurgitation. Pulmonary Artery * Pulmonary artery not well visualized. Aorta * Normally sized aortic root. Pericardium * There is no pericardial effusion present. Interatrial Septum * No evidence of PFO by color Doppler. * No evidence of PFO with agitated saline contrast. IVC * < 50% respiratory change. * The IVC is not dilated. Chest X-Ray 02/23/18 06:08 IMPRESSION: No significant change in predominantly perihilar airspace disease, right greater than left, most compatible with pulmonary edema. D/ / Davey Rubio MD / Davey Rubio MD Interpreting Provider: Davey Rubio MD - Imaging EKG: image reviewed (107bpm - Interpretive Statements ATRIAL FIBRILLATION WITH RAPID VENTRICULAR RESPONSE SEPTAL MYOCARDIAL INFARCTION, OF INDETERMINATE AGE Electronically Signed On 02-23-2018 16:12:09 EDT by Darcie Bunn) Anesthesia Exam Vital Signs Temp Pulse Resp BP Pulse Ox 02/24/18 08:34 97.9 F 82 16 139/88 95 02/24/18 07:14 97.9 F 69 16 131/81 99 02/24/18 04:26 97.7 F 74 15 110/68 92 02/24/18 00:09 97.3 F L 72 16 121/78 95 02/23/18 19:09 98.7 F 107 18 141/85 92 02/23/18 16:40 98.8 F 89 16 137/83 95 02/23/18 14:00 88 18 131/92 98 02/23/18 13:00 79 18 135/92 96 02/23/18 12:00 78 18 137/93 97 02/23/18 11:00 88 20 146/96 99 02/23/18 10:00 89 20 99 Intake and Output 02/23/18 02/24/18 02/24/18 23:59 07:59 15:59 Intake Total 277 / 277 Balance 277 / 277 Intake: IV Fluids 157 / 157 Heparin 25,000 UNIT/500 ML D5W 157 / 157 25,000 unit In 500 ml @ 14 UNIT /KG/HR 15.764 mls/hr IVC .Q24H ANDRES Rx#:[id number] Oral 120 / 120 Other: Meal Dinner Percent of Meal Consumed 10% # Voids 1 Weight 46.357 kg Patient Weight 02/24/18 23:59 Weight 46.357 kg Height: 4'11" Weight: 102# BMI = 20.6 NPO (# of Hours): MNOc - HEENT Pupil (Motor): Pupils equal, EOMI Mallampati: II Teeth: Edentulous Oral Opening: Greater than 3 - GROUP TEACHER LOC: Oriented GROUP TEACHER Motor: Normal RUE, Normal LUE, Normal RLE, Normal LLE, Normal Face GROUP TEACHER Sensory: Normal: RUE, LUE, RLE, LLE, Face - Cardiac Rhythm: Irregular JVD: No - Pulmonary Breath Sounds: bilateral Clear Respiratory Effort: Symmetrical Anesthesia Assess/Plan ASA Score: 4 (SEVERE PulmHtn, AFib, CHF, Htn, Severe Mitral ValveDz) Modified Sophia Scale for Level of Consciousness: Cooperative, oriented, and tranquil Anesthetic Plan: MAC Monitoring Plan: Standard Monitors Recovery Plan: Other Anes Supervising Prov Stmt: Pt seen/evaluated, R&B Discussed, questions answered and consent obtained. Jerad Hardy MD
[2018-02-24] MEDS ORDERED: Furosemide 40 MG TABLET PO SCH ×3 (09:00)
[2018-02-24] MEDS ORDERED: Aspirin 81 MG TAB.CHEW PO SCH (09:00)
--- NOTE | 2018-02-24 10:18 | Cardiology Progress Note ---
Date of Encounter: 02/24/18 Time of Encounter: 10:17 Assessment and Plan (1) Acute on chronic diastolic CHF (congestive heart failure) Current Visit: Yes Status: Acute Patient presenting with respiratory distress with BNP at [place] noted to be at 9000, admission labs shows BNP at 624, troponin 0.05. Patient remains stable continues to be asymptomatic Echocardiogram on 02/22/18 showed EF of 60%, severe mitral stenosis, moderate mitral regurgitation, moderate to severe TR, severe pulmonary htn, severe dilated left atrium Continue lasix, continuation outpatient recommended, has been taken off bipap now on 2.5L NC, satting at 99%. continue strict I/O's (2) Atrial fibrillation with rapid ventricular response Current Visit: No Status: Acute Patient presented on 02/22/18 with atrial fibrillation with RVR, chronic atrial fibrillation. Currently, stable with asymptomatic atrial fibrillation, rate of 78 bpm. Most likely due to severe valvular disease with severe dilation of left atrium with chronic atrial fibrillation and chronic heart failure causing pulmonary edema/ acute exacerbation of HF [id number] score of 5, significant for age, sex, and medical hx. Patient on home Cardizem 120mg daily, was placed on amiodarone, continue D/C amiodarone. On Cardizem 30 mg q6h with outpatient continuation, Cardizem 120mg qd PO home. Recommend switching to PO Coumadin per PT, Per GI, continue to hold until Tuesday until repeat EGD. Continuation of PO coumadin at home Outpatient follow up established to see Dr. Sevilla's, for severe valvular disease , to discuss valve replacement options Discussion w patient/family: The assessment and plan as outlined above was discussed with the patient and/or family members who expressed understanding and agreement. All questions were answered. Thank you for involving us in the care of your patient. Please call with any questions. Subjective Principal diagnosis: CHF Interval history: Patient continues to do well today without chest pain, palpitations. Was supposed to have endoscopy today however, started to desat and procedure was stopped. Will be repeated on Tuesday. Patient is in understanding. Discussed with the patient echocardiogram results and follow up with Dr. Sevilla, she would like to have outpatient follow up for valve replacement options as she states she is now ready to proceed if necessary. Patient continues to have sob when walking, states that if not wearing oxygen she begins to desat. Objective Vital Signs, Last 4 Hours Temp Pulse Resp BP Pulse Ox 02/24/18 08:34 97.9 F 82 16 139/88 95 02/24/18 07:14 97.9 F 69 16 131/81 99 General: Conversant, No Apparent Distress HEENT: Atraumatic, Normocephaly, Mucus Membranes Moist Neck: No JVD, Normal carotid pulses Cardiac: Normal S1 and S2 (irregularly irregular, normal rate), No Murmur Lungs: Normal Breath Sounds, No Wheeze, Rales, Rhonchi Neuro: Alert and responsive, No focal deficits noted Abdomen: Soft, Non-Tender Skin: No rashes noted on visualized skin Musculoskeletal: No Chest Wall Tenderness Extremities: No Cyanosis, No Edema, Normal Pulses Results 02/24/18 06:43 02/24/18 06:43 Lab Results 02/23/18 02/24/18 02/24/18 05:04 06:43 06:43 WBC 9.8 Hgb 12.0 Hct 37.5 Plt Count 279 INR Sodium 137 Potassium 3.7 Chloride 98 Carbon Dioxide 32 H BUN 24 H Creatinine 1.03 Glucose 91 Calcium 9.2 TSH 3.139 02/24/18 08:07 WBC Hgb Hct Plt Count INR 1.1 Sodium Potassium Chloride Carbon Dioxide BUN Creatinine Glucose Calcium TSH - Imaging and Cardiology Chest Xray: report reviewed Echo: report reviewed - EKG Interpretation EKG results cardiology: personally reviewed Consult Discharge Plan - Plan Referrals: NONE,PCP [Primary Care Provider] -
[2018-02-24] MEDS: Metoprolol 100 MG TABLET PO SCH ×2 (11:16→21:17)
[2018-02-24] MEDS: Furosemide 40 MG TABLET PO SCH ×2 (11:16→17:12)
[2018-02-24] MEDS: Aspirin 81 MG TAB.CHEW PO SCH (11:16)
[2018-02-24] MEDS ORDERED: *HR* Heparin 5,000 UNIT/ML VIAL IVP ONE (15:35)
[2018-02-24] MEDS ORDERED: *HR* Heparin 5,000 UNIT/ML VIAL IVP PRN ×2 (15:35)
--- NOTE | 2018-02-24 16:18 | Internal Med Progress Note ---
Hospitalist Progress Note - Encounter Date of Encounter: 02/24/18 Time of Encounter: 16:15 - Subjective Interval History: Patient is on 3 L nasal cannula oxygen. Sitting on bed comfortably. Family at bedside. Back from upper GI endoscope procedure but dilatation could not get done as patient was desaturating. Patient denies fever chills nausea vomiting headache dizziness chest pain short of breath abdominal pain urinary bowel complaint. Review of the lab and reviewed the area development consultant notes. - Exam Vitals: Temp Pulse Resp BP Pulse Ox 98.0 F 60 18 130/76 97 02/24/18 16:12 02/24/18 16:12 02/24/18 16:12 02/24/18 16:12 02/24/18 16:12 Exam: General appearance: No acute distress, A&O X 3. Oxygen by nasal cannula 3 L. Head exam: Atraumatic Eye exam: EOMI, PERRLA ENT exam: Moist oral mucosa Neck nontender, supple Respiratory exam: Slight diminished bilaterally Cardiovascular exam: Irregularly irregular rhythm with normal rate, no systolic murmur Abdominal exam: Soft, nontender, nondistended, positive bowel sounds Extremities exam: No calf tenderness, no pedal edema Present: Neurological exam: CN II-XII intact, no focal deficits. No facial droop. Normal speech. Normal gait. - Assessment and Plan (1) Acute on chronic diastolic CHF (congestive heart failure) Current Visit: Yes Status: Acute Assessment and Plan: Patient was transferred from [facility] with respiratory distress and very high BNP. Echocardiogram with EF 60%, severe MS, moderate MR, moderate to CVR TR, severe pulmonary hypertension, severe dilated left atrium. Continue Lasix with a strict I&O's. Earlier patient was on BiPAP that was taken off and weaning down to oxygen by nasal cannula. (2) Atrial fibrillation with rapid ventricular response Current Visit: No Status: Acute Assessment and Plan: Acute on chronic A. fib with RVR. Stable while on Cardizem 30 mg every 6 hours and heparin drip. Patient was on Coumadin initially but says to heparin drip as there was planned for GI procedure. Will continue heparin drip to Tuesday until repeat EGD. Plan to discharge patient on Cardizem 120 mg by mouth daily, Coumadin with follow-up in Coumadin clinic. Follow-up with for severe valvular disease to discuss valve replacement options (3) HTN (hypertension) Current Visit: No Status: Acute Assessment and Plan: Well-controlled continue current regime with close monitoring (4) Acute respiratory failure Current Visit: Yes Status: Acute Assessment and Plan: Due to acute on chronic CHF. Improving. (5) DVT prophylaxis Current Visit: Yes Status: Acute Assessment and Plan: On heparin drip. (6) Dysphagia Current Visit: Yes Status: Acute Assessment and Plan: Dysphagia for solid food. Previous history of a oesophageal web years ago. Patient had EGD today with severe stricture finding but the limitation could not performed as patient has desaturation. Plan to repeat EGD on Tuesday and tell them continue IV heparin drip. GI on board - Time Spent with Patient Total time spent is greater than 50% in coordination of care (as documented) at patient's floor/unit and/or counseling patient: 25 - 35 minutes Plan of Care Discussed with: family Internal Medicine: Result - Labs CBC & Chem 7: 02/24/18 06:43 02/24/18 06:43 Labs: Short CBC 02/24/18 Range/Units 06:43 WBC 9.8 (4.3-11.1) K/mcL Hgb 12.0 (11.5-15.4) g/dL Hct 37.5 (35.3-44.9) % Plt Count 279 (140-400) K/mcL Neutrophils # 8.1 (1.6-8.9) K/mcL BMP 02/24/18 06:43 Sodium 137 Potassium 3.7 Chloride 98 Carbon Dioxide 32 H BUN 24 H Creatinine 1.03 Glucose 91 Calcium 9.2 - ABG Interpretation ABG results: ABG ABG pH 7.47 pH Units (7.32-7.45) H 02/23/18 04:55 ABG pCO2 39 mmHg (35-45) 02/23/18 04:55 ABG pO2 114 mmHg (85-104) H 02/23/18 04:55 ABG O2 Saturation 99 % (95-98) H 02/23/18 04:55 PT/INR, D-dimer PT 12.0 Seconds (9.4-12.1) 02/24/18 08:07 Consult Discharge Plan - Plan Referrals: NONE,PCP [Primary Care Provider] - (3) HTN (hypertension) Qualifiers: Hypertension type: essential hypertension Qualified Code(s): I10 - Essential (primary) hypertension (4) Acute respiratory failure Qualifiers: Respiratory failure complication: hypoxia Qualified Code(s): J96.01 - Acute respiratory failure with hypoxia (6) Dysphagia Qualifiers: Dysphagia type: esophageal phase Qualified Code(s): R13.10 - Dysphagia, unspecified
[2018-02-24] MEDS: Heparin 25,000 UNIT/500 ML D5W 25,000 UNIT/500 ML BAG IVC SCH (17:10)
[2018-02-24] MEDS ORDERED: *HR* Warfarin 5 MG TABLET PO ONE (18:00)
[2018-02-24] MEDS ORDERED: Warfarin perPT PO PRN (18:00)
[2018-02-25 06:40] LABS: Basophils % 0.5 %; Eosinophils # 0.2 K/mcL (0.0-0.6); Eosinophils % 2.6 %; Hematocrit 36.7 % (35.3-44.9); Hemoglobin 11.7 g/dL (11.5-15.4); Immature Granulocytes % 0.5 % (0-4); Lymphocytes # 1.3 K/mcL (0.6-4.6); Lymphocytes % 16.3 %; Mean Corpuscular HGB Conc 31.9 g/dL (31.6-35.5); Mean Corpuscular Hemoglobin 29.4 pg (28.0-33.3); Mean Corpuscular Volume 92.2 fL (83.0-100.0); Monocytes # 0.5 K/mcL (0.0-1.3); Monocytes % 5.6 %; Neutrophils # 5.9 K/mcL (1.6-8.9); Platelet Count 270 K/mcL (140-400); Red Blood Count 3.98 M/mcL (3.82-4.97); Red Cell Distribution Width 16.9 % (11.5-14.5); Segmented Neutrophils % 74.5 %
[2018-02-25 06:46] LABS: Prothrombin Time 11.6 Seconds (9.4-12.1)
[2018-02-25 06:55] LABS: BUN/Creatinine Ratio 25 (6-26); Blood Urea Nitrogen 25 mg/dL (8-23); Calcium 9.1 mg/dL (8.6-10.3); Carbon Dioxide 30 mEq/L (23-29); Chloride 99 mEq/L (98-107); Glucose 90 mg/dL (70-105); Osmolality,Calculated 284 (280-300); Potassium 4.3 mEq/L (3.5-5.1); Sodium 135 mEq/L (136-145); eGFR For Non-African Americans 54 (> 60)
[2018-02-25] MEDS: Metoprolol 100 MG TABLET PO SCH ×2 (07:36→20:04)
[2018-02-25] MEDS: Furosemide 40 MG TABLET PO SCH ×2 (08:40→16:56)
[2018-02-25] MEDS: Aspirin 81 MG TAB.CHEW PO SCH (08:40)
--- NOTE | 2018-02-25 11:56 | Internal Med Progress Note ---
Hospitalist Progress Note - Encounter Date of Encounter: 02/25/18 Time of Encounter: 11:51 - Subjective Interval History: Patient is on 2.5 L nasal cannula oxygen and oxygen saturation 97%. Sitting on bed comfortably. Patient denies fever chills nausea vomiting headache dizziness chest pain short of breath abdominal pain urinary bowel complaint. Review of the lab and - Exam Vitals: Temp Pulse Resp BP Pulse Ox 97.8 F 56 17 129/74 99 02/25/18 07:54 02/25/18 07:54 02/25/18 07:54 02/25/18 07:54 02/25/18 07:54 Exam: General appearance: No acute distress, A&O X 3 Eye exam: EOMI, PERRLA Neck nontender, supple Respiratory exam: Clear to auscultation bilaterally Cardiovascular exam: Regular rate and rhythm, no systolic murmur Abdominal exam: Soft, nontender, nondistended, positive bowel sounds Extremities exam: No calf tenderness, no pedal edema Present: Neurological exam: CN II-XII intact, no focal deficits. No facial droop. Normal speech. Normal gait. - Assessment and Plan (1) Acute on chronic diastolic CHF (congestive heart failure) Current Visit: Yes Status: Acute Assessment and Plan: Patient got admitted for respiratory distress and very high BNP. Echocardiogram with EF 60%, severe MS, moderate MR, moderate to severe TR, severe pulmonary hypertension, severe dilated left atrium. Continue Lasix with a strict I&O's. Earlier patient was on BiPAP that was taken off and weaning down to oxygen by nasal cannula. Will give oxygen weaning off trial today. She is saturating 97% on 2.5 L oxygen. (2) Atrial fibrillation with rapid ventricular response Current Visit: No Status: Acute Assessment and Plan: Acute on chronic A. fib with RVR. Stable while on Cardizem 30 mg every 6 hours and heparin drip. Patient was on Coumadin initially but changed to heparin drip as there was planned for GI procedure. Will continue heparin drip till Tuesday until repeat EGD is done. Plan to discharge patient on Cardizem 120 mg by mouth daily, Coumadin with follow-up in Coumadin clinic. Follow-up with for severe valvular disease to discuss valve replacement options (3) HTN (hypertension) Current Visit: No Status: Acute Assessment and Plan: Well-controlled continue current regime with close monitoring (4) Acute respiratory failure Current Visit: Yes Status: Acute Assessment and Plan: Due to acute on chronic CHF. Improving. (5) Dysphagia Current Visit: Yes Status: Acute Assessment and Plan: Dysphagia for solid food. Previous history of a oesophageal web years ago. Patient had EGD on with severe stricture finding but the dilatation could not performed as patient had desaturation. Plan to repeat EGD on Tuesday . GI on board (6) DVT prophylaxis Current Visit: Yes Status: Acute Assessment and Plan: On heparin drip. - Time Spent with Patient Total time spent is greater than 50% in coordination of care (as documented) at patient's floor/unit and/or counseling patient: 25 - 35 minutes Internal Medicine: Result - Labs CBC & Chem 7: 02/25/18 06:09 02/25/18 06:09 Labs: Short CBC 02/25/18 Range/Units 06:09 WBC 8.0 (4.3-11.1) K/mcL Hgb 11.7 (11.5-15.4) g/dL Hct 36.7 (35.3-44.9) % Plt Count 270 (140-400) K/mcL Neutrophils # 5.9 (1.6-8.9) K/mcL BMP 02/25/18 06:09 Sodium 135 L Potassium 4.3 Chloride 99 Carbon Dioxide 30 H BUN 25 H Creatinine 1.02 Glucose 90 Calcium 9.1 - ABG Interpretation ABG results: ABG ABG pH 7.47 pH Units (7.32-7.45) H 02/23/18 04:55 ABG pCO2 39 mmHg (35-45) 02/23/18 04:55 ABG pO2 114 mmHg (85-104) H 02/23/18 04:55 ABG O2 Saturation 99 % (95-98) H 02/23/18 04:55 PT/INR, D-dimer PT 11.6 Seconds (9.4-12.1) 02/25/18 06:09 Consult Discharge Plan - Plan Referrals: NONE,PCP [Primary Care Provider] - (3) HTN (hypertension) Qualifiers: Hypertension type: essential hypertension Qualified Code(s): I10 - Essential (primary) hypertension (4) Acute respiratory failure Qualifiers: Respiratory failure complication: hypoxia Qualified Code(s): J96.01 - Acute respiratory failure with hypoxia (5) Dysphagia Qualifiers: Dysphagia type: esophageal phase Qualified Code(s): R13.10 - Dysphagia, unspecified
[2018-02-25] MEDS: Heparin 25,000 UNIT/500 ML D5W 25,000 UNIT/500 ML BAG IVC SCH (21:54)
[2018-02-26 06:39] LABS: Heparin anti-factor XA UFH 0.33 IU/mL (0.30-0.70)
[2018-02-26 06:40] LABS: INR 0.9; Prothrombin Time 10.6 Seconds (9.4-12.1)
[2018-02-26] MEDS: Aspirin 81 MG TAB.CHEW PO SCH (08:23)
[2018-02-26] MEDS: Furosemide 40 MG TABLET PO SCH ×2 (08:23→17:56)
[2018-02-26] MEDS: Metoprolol 100 MG TABLET PO SCH ×2 (08:24→20:28)
--- NOTE | 2018-02-26 13:25 | Internal Med Progress Note ---
Hospitalist Progress Note - Encounter Date of Encounter: 02/26/18 Time of Encounter: 13:23 - Subjective Interval History: seen and examined in the room, she Wells oxygen per nasal cannula, she has no respiratory distress and resting comfortably. - Exam Vitals: Temp Pulse Resp BP Pulse Ox 97.7 F 73 18 142/78 92 02/26/18 12:16 02/26/18 12:16 02/26/18 12:16 02/26/18 12:16 02/26/18 12:16 Exam: PHYSICAL EXAMINATION: GENERAL APPEARANCE: The patient is alert, oriented and in no acute distress. HEENT: Head is normocephalic. The sinuses are nontender. Pupils are equal and reactive. The nares are patent. Oropharynx clear without lesions. NECK: Supple without lymphadenopathy. HEART: Regular rate and rhythm. LUNGS: No crackles or wheezes are heard. ABDOMEN: Soft, nontender, nondistended with good bowel sounds heard. Inguinal area is normal. EXTREMITIES: Without cyanosis, clubbing or edema. NEUROLOGICAL: Gross nonfocal. SKIN: Warm and dry without any rash. - Assessment and Plan (1) Acute on chronic diastolic CHF (congestive heart failure) Current Visit: Yes Status: Acute Assessment and Plan: Patient got admitted for respiratory distress and very high BNP. Echocardiogram with EF 60%, severe MS, moderate MR, moderate to severe TR, severe pulmonary hypertension, severe dilated left atrium. Continue Lasix with a strict I&O's. Earlier patient was on BiPAP that was taken off and weaning down to oxygen by nasal cannula. Will give oxygen weaning off trial today. She is saturating 97% on 2.5 L oxygen. (2) Dysphagia Current Visit: Yes Status: Acute Assessment and Plan: Dysphagia for solid food. Previous history of a oesophageal web years ago. Patient had EGD on with severe stricture finding but the dilatation could not performed as patient had desaturation. Plan to repeat EGD on Tuesday. GI on board (3) Atrial fibrillation with rapid ventricular response Current Visit: No Status: Acute Assessment and Plan: Acute on chronic A. fib with RVR. Stable while on Cardizem 30 mg every 6 hours and heparin drip. Patient was on Coumadin initially but changed to heparin drip as there was planned for GI procedure. Will continue heparin drip till Tuesday until repeat EGD is done. Plan to discharge patient on Cardizem 120 mg by mouth daily, Coumadin with follow-up in Coumadin clinic. Follow-up with for severe valvular disease to discuss valve replacement options (4) HTN (hypertension) Current Visit: No Status: Acute Assessment and Plan: Well-controlled continue current regime with close monitoring (5) Mitral valve stenosis, severe Current Visit: No Status: Acute Assessment and Plan: Patient will follow up with cardiology as outpatient. (6) DVT prophylaxis Current Visit: Yes Status: Acute Assessment and Plan: On heparin drip. - Time Spent with Patient Total time spent is greater than 50% in coordination of care (as documented) at patient's floor/unit and/or counseling patient: Greater than 35 minutes Plan of Care Discussed with: patient Internal Medicine: Result - Labs CBC & Chem 7: 02/25/18 06:09 02/25/18 06:09 - ABG Interpretation ABG results: ABG ABG pH 7.47 pH Units (7.32-7.45) H 02/23/18 04:55 ABG pCO2 39 mmHg (35-45) 02/23/18 04:55 ABG pO2 114 mmHg (85-104) H 02/23/18 04:55 ABG O2 Saturation 99 % (95-98) H 02/23/18 04:55 PT/INR, D-dimer PT 10.6 Seconds (9.4-12.1) 02/26/18 06:02 Consult Discharge Plan - Plan Referrals: NONE,PCP [Primary Care Provider] - (2) Dysphagia Qualifiers: Dysphagia type: esophageal phase Qualified Code(s): R13.10 - Dysphagia, unspecified (4) HTN (hypertension) Qualifiers: Hypertension type: essential hypertension Qualified Code(s): I10 - Essential (primary) hypertension
[2018-02-27 04:47] LABS: Basophils # 0.1 K/mcL (0.0-0.2); Basophils % 0.5 %; Eosinophils # 0.2 K/mcL (0.0-0.6); Eosinophils % 1.8 %; Hematocrit 41.1 % (35.3-44.9); Immature Granulocytes % 0.9 % (0-4); Lymphocytes % 10.4 %; Mean Corpuscular HGB Conc 32.4 g/dL (31.6-35.5); Mean Corpuscular Hemoglobin 29.1 pg (28.0-33.3); Mean Corpuscular Volume 89.9 fL (83.0-100.0); Mean Platelet Volume 10.2 fL (9.4-12.4); Monocytes # 0.8 K/mcL (0.0-1.3); Monocytes % 8.5 %; Neutrophils # 7.7 K/mcL (1.6-8.9); Platelet Count 296 K/mcL (140-400); Red Blood Count 4.57 M/mcL (3.82-4.97); Red Cell Distribution Width 16.3 % (11.5-14.5); Segmented Neutrophils % 77.9 %
[2018-02-27 04:48] LABS: Hemoglobin 13.3 g/dL (11.5-15.4)
[2018-02-27 04:51] LABS: Prothrombin Time 11.5 Seconds (9.4-12.1)
[2018-02-27 05:07] LABS: BUN/Creatinine Ratio 26 (6-26); Blood Urea Nitrogen 27 mg/dL (8-23); Calcium 10.3 mg/dL (8.6-10.3); Carbon Dioxide 34 mEq/L (23-29); Chloride 91 mEq/L (98-107); Glucose 96 mg/dL (70-105); Osmolality,Calculated 281 (280-300); Sodium 133 mEq/L (136-145); eGFR For Non-African Americans 52 (> 60)
[2018-02-27] MEDS: Furosemide 40 MG TABLET PO SCH ×2 (07:51→17:11)
[2018-02-27] MEDS: Aspirin 81 MG TAB.CHEW PO SCH (07:52)
[2018-02-27] MEDS: Metoprolol 100 MG TABLET PO SCH ×2 (07:52→22:29)
[2018-02-27] MEDS: Heparin 25,000 UNIT/500 ML D5W 25,000 UNIT/500 ML BAG IVC SCH (07:58)
--- NOTE | 2018-02-27 10:16 | Internal Med Progress Note ---
Hospitalist Progress Note - Encounter Date of Encounter: 02/27/18 Time of Encounter: 10:09 - Subjective Interval History: Patient had no acute events overnight. She denies any respiratory issues. She is currently saturating in 90s on room air. She denies fever, chills, chest pain, SOB, nausea, vomiting, or abdominal pain. She is eager to go home. She has no complaints at this time. - Exam Vitals: Temp Pulse Resp BP Pulse Ox 97.7 F 67 17 146/83 96 02/27/18 07:35 02/27/18 07:35 02/27/18 07:35 02/27/18 07:35 02/27/18 07:35 Exam: Gen - Awake, alert, no acute distress HEENT - NCAT, PERRLA, EOMI, hearing grossly intact, oropharynx benign CV - RRR, normal S1 and S2, no M/R/G, no BLE edema Resp - Normal WOB, CTAB, no W/R/R GI - Soft, NT/ND, no masses, normal bowel sounds, no HSP Skin - Warm, dry, no rashes/lesions/ulcers Psych - Normal mood and affect, no depression or anxiety - Assessment and Plan (1) Acute on chronic diastolic CHF (congestive heart failure) Current Visit: Yes Status: Acute Assessment and Plan: Patient got admitted for respiratory distress and very high BNP. Echocardiogram with EF 60%, severe MS, moderate MR, moderate to severe TR, severe pulmonary hypertension, severe dilated left atrium. Continue Lasix with a strict I&O's. Earlier patient was on BiPAP that was taken off and weaning down to oxygen by nasal cannula. Will give oxygen weaning off trial today. She is saturating 97% on 2.5 L oxygen. 02/27 - Now on room air. No respiratory distress. Continue lasix 40 mg PO BID; considering weaning to home 40 mg PO QD if remains stable on room air today. (2) Dysphagia Current Visit: Yes Status: Acute Assessment and Plan: Dysphagia for solid food. Previous history of a oesophageal web years ago. Patient had EGD on with severe stricture finding but the dilatation could not performed as patient had desaturation. Plan to repeat EGD on Tuesday. GI on board. 02/27 - Plan for EGD today. Consider trial of diet after. Restart home coumadin tomorrow if stable after procedure. (3) Atrial fibrillation with rapid ventricular response Current Visit: Yes Status: Acute Assessment and Plan: Acute on chronic A. fib with RVR. Stable while on Cardizem 30 mg every 6 hours and heparin drip. Patient was on Coumadin initially but changed to heparin drip as there was planned for GI procedure. Will continue heparin drip till Tuesday until repeat EGD is done. Plan to discharge patient on Cardizem 120 mg by mouth daily, Coumadin with follow-up in Coumadin clinic. Follow-up with for severe valvular disease to discuss valve replacement options. 02/27 - NSR today. HR controlled. Holding heparin drip for EGD today. Continue cardizem for now. Plan to restart home coumadin tomorrow. Discharge on cardizem 120 mg PO QD. (4) HTN (hypertension) Current Visit: Yes Status: Chronic Assessment and Plan: 02/27 - Normotensive. Continue cardizem and metoprolol. (5) Mitral valve stenosis, severe Current Visit: Yes Status: Chronic Assessment and Plan: 02/27 - Keep outpatient cardiology follow up. (6) DVT prophylaxis Current Visit: Yes Status: Acute Assessment and Plan: 02/27 - Holding heparin drip today for EGD. Restart home coumadin tomorrow. - Time Spent with Patient Total time spent is greater than 50% in coordination of care (as documented) at patient's floor/unit and/or counseling patient: less than 15 minutes Plan of Care Discussed with: patient (Nurse) Internal Medicine: Result - Labs CBC & Chem 7: 02/27/18 04:25 02/27/18 04:25 Labs: Short CBC 02/27/18 Range/Units 04:25 WBC 9.9 (4.3-11.1) K/mcL Hgb 13.3 D (11.5-15.4) g/dL Hct 41.1 (35.3-44.9) % Plt Count 296 (140-400) K/mcL Neutrophils # 7.7 (1.6-8.9) K/mcL BMP 02/27/18 04:25 Sodium 133 L Potassium 5.0 Chloride 91 L Carbon Dioxide 34 H BUN 27 H Creatinine 1.05 Glucose 96 Calcium 10.3 - ABG Interpretation ABG results: ABG ABG pH 7.47 pH Units (7.32-7.45) H 02/23/18 04:55 ABG pCO2 39 mmHg (35-45) 02/23/18 04:55 ABG pO2 114 mmHg (85-104) H 02/23/18 04:55 ABG O2 Saturation 99 % (95-98) H 02/23/18 04:55 PT/INR, D-dimer PT 11.5 Seconds (9.4-12.1) 02/27/18 04:25 Consult Discharge Plan - Plan Referrals: NONE,PCP [Primary Care Provider] - (2) Dysphagia Qualifiers: Dysphagia type: esophageal phase Qualified Code(s): R13.10 - Dysphagia, unspecified (4) HTN (hypertension) Qualifiers: Hypertension type: essential hypertension Qualified Code(s): I10 - Essential (primary) hypertension
[2018-02-27] MEDS ORDERED: Lidocaine -MPF 2% 2 ML VIAL ONE (11:29)
[2018-02-27] MEDS ORDERED: Propofol 500 MG/50 ML INFUS..BTL ONE (11:29)
--- NOTE | 2018-02-27 12:56 | Anesthesia Evaluation PreOp ---
Date of Encounter: 02/27/18 Time of Encounter: 12:54 - Past History Planned Operation: EGD Cardiac History: CHF, HTN, Hyperlipidemia, Arrhythmia (A-Fib with RVR), Other ( severe mitral stenosis) Pulmonary History: COPD, Other (severe pulmonary HTN/RA pressumre = 92mmHg) HEALTH EDUCATION DIRECTOR History: Denies Any Significant HX Other Medical History: Denies Any Significant HX Anesthesia History: No Prior Anesthetic Complications, Past Anesthesia Alcohol Use: none Drug use: none Medications and Allergies Aspirin Enteric Coated [Aspirin EC] 81 mg PO DAILY #30 tablet.dr 12/13/15 [Rx] Furosemide [Lasix] 40 mg PO DAILY #30 tablet 12/13/15 [Rx] Metoprolol [Lopressor] 100 mg PO BID #60 tablet 12/13/15 [Rx] Diltiazem CD (24hr) [Cardizem CD] 120 mg PO DAILY #30 cap.er.24h 01/14/16 [Rx] Warfarin [Coumadin] 2.5 mg PO SUMOWETHFR 02/22/18 [History] Warfarin [Coumadin] 5 mg PO TUSA 02/22/18 [History] 3 Allergy/AdvReac Type Severity Reaction Status Date / Time No Known Allergies Allergy Verified 12/11/15 18:23 - Meds/Allergy Pre-op Review Medications Reviewed: Yes Allergies Reviewed: Yes Beta Blockers on Current Med List: Yes If Beta Blockers taken, Date/Time (Last Dose taken): 02/27/2018 at 0752 Anesthesia Results - Labs 02/27/18 04:25 02/27/18 04:25 - Imaging EKG: report reviewed (02/22/2018 ATRIAL FIBRILLATION WITH RAPID VENTRICULAR RESPONSE SEPTAL MYOCARDIAL INFARCTION, OF INDETERMINATE AGE) Additional studies: 02/22/2018 Echo Impressions: LVEF 60%. Mild concentric left ventricular hypertrophy. Indeterminate diastolic function. Normal right ventricular size with mild reduction in function. Very severely dilated left atrium. Moderately dilated right atrium. Mild aortic regurgitation. Moderate mitral regurgitation. Severe mitral stenosis, MG 15 mmHg at 86 bpm. Moderate-severe tricuspid regurgitation. Mild pulmonic regurgitation. No evidence of PFO with agitated saline contrast. Estimated RVSP is 92 mmHg. Severe pulmonary hypertension. Mitral Valve Peak Velocity 3.71 m/sec Mean Velocity: 2.76 m/sec Peak Grad: 55.00 mmHg Mean Grad: 40.67 mmHg Pressure Time: 166.25 msec Valve Area: .46 cm2 Peak E: 3.12 m/sec Peak E' Lat Juan: 6.48 cm/s Peak E' Med Juan: 3.07 cm/s E/E' Lat Ratio: 48.1 E/E' Med Ratio: 101.6 01/14/2016 RIGHT HEART CATH Indications: Pulmonary Hypertention, Preop - MVR, Valvular heart disease Findings: Moderate pulmonary hypertension Elevated RA pressure Recommendations: Optimal medical therapy of patient's disease. Aggressive risk factor modification. Anesthesia Exam Vital Signs/O2 Sat/Glucose, Most Recent Temp Pulse Resp BP Pulse Ox 97.6 F 82 18 152/91 95 02/27/18 11:29 02/27/18 11:29 02/27/18 11:29 02/27/18 11:29 02/27/18 11:29 Blood Glucose* 117 Height: 4'11''/1.5m Weight: 105 lbs/48 kg NPO (# of Hours): 8 Pain Scale: 0 Pain Scale Used: Numeric (1 - 10) - HEENT Pupil (Motor): EOMI Mallampati: II Teeth: Edentulous Oral Opening: Greater than 3 - HEALTH EDUCATION DIRECTOR LOC: Oriented HEALTH EDUCATION DIRECTOR Motor: Normal RUE, Normal LUE, Normal RLE, Normal LLE, Normal Face HEALTH EDUCATION DIRECTOR Sensory: Normal: RUE, LUE, RLE, LLE, Face - Cardiac Rhythm: Irregular Murmur: Systolic - Pulmonary Breath Sounds: bilateral Clear Respiratory Effort: Symmetrical Anesthesia Assess/Plan ASA Score: 4 (Patient understands that she is at increased risk for perioperative complications including myocardial infarct, arrhythmias, CVA, post op vent support/ICU stay, and . Patient wishes to proceed.) Modified Sophia Scale for Level of Consciousness: Cooperative, oriented, and tranquil Anesthetic Plan: MAC Monitoring Plan: Standard Monitors
[2018-02-27] MEDS ORDERED: *HR* Etomidate 40 MG/20 ML VIAL IVP ONE (13:02)
[2018-02-27] MEDS ORDERED: *HR* Warfarin 2.5 MG TABLET PO SCH (18:00)
[2018-02-27] MEDS ORDERED: Warfarin perPT PO PRN (18:00)
[2018-02-28 05:16] LABS: Basophils % 0.4 %; Eosinophils # 0.2 K/mcL (0.0-0.6); Eosinophils % 1.7 %; Hemoglobin 13.8 g/dL (11.5-15.4); Immature Granulocytes % 0.5 % (0-4); Lymphocytes # 1.1 K/mcL (0.6-4.6); Lymphocytes % 11.1 %; Mean Corpuscular HGB Conc 32.9 g/dL (31.6-35.5); Mean Corpuscular Hemoglobin 28.9 pg (28.0-33.3); Mean Corpuscular Volume 88.1 fL (83.0-100.0); Monocytes # 0.9 K/mcL (0.0-1.3); Monocytes % 8.6 %; Neutrophils # 7.9 K/mcL (1.6-8.9); Platelet Count 323 K/mcL (140-400); Red Blood Count 4.77 M/mcL (3.82-4.97); Red Cell Distribution Width 16.5 % (11.5-14.5); Segmented Neutrophils % 77.7 %
[2018-02-28 05:20] LABS: INR 1.1; Prothrombin Time 12.2 Seconds (9.4-12.1)
[2018-02-28 05:31] LABS: Potassium 4.6 mEq/L (3.5-5.1)
[2018-02-28] MEDS: Metoprolol 100 MG TABLET PO SCH (08:32)
[2018-02-28] MEDS: Furosemide 40 MG TABLET PO SCH (08:32)
[2018-02-28] MEDS: Aspirin 81 MG TAB.CHEW PO SCH (08:32)
--- NOTE | 2018-02-28 10:03 | Discharge Summary ---
- NOTES TO OUTPATIENT PROVIDER Notes to Outpatient Provider: Follow up with PCP in 2-3 days after discharge. Recheck BMP and CBC at that time. Follow up at [facility] as directed by GI for dysphagia. Follow up in Coumadin Clinic on Tuesday. Orders not resulted at time of discharge: Pending orders 02/22/18 16:10 Culture,Sputum with Gram Stain [RM] Routine 03/01/18 04:00 PT/INR [Prothrombin Time INR] [COAG] AM 0400 03/02/18 04:00 PT/INR [Prothrombin Time INR] [COAG] AM 0400 03/03/18 04:00 PT/INR [Prothrombin Time INR] [COAG] AM 0400 03/04/18 04:00 PT/INR [Prothrombin Time INR] [COAG] AM 0400 Date of Encounter: 02/28/18 Time of Encounter: 10:00 - Discharge Diagnosis (1) Acute on chronic diastolic CHF (congestive heart failure) Priority: Primary Status: Acute (2) Dysphagia Priority: Secondary Status: Acute Qualifiers: Dysphagia type: esophageal phase Qualified Code(s): R13.10 - Dysphagia, unspecified (3) Atrial fibrillation with rapid ventricular response Priority: Secondary Status: Acute (4) HTN (hypertension) Priority: Secondary Status: Chronic Qualifiers: Hypertension type: essential hypertension Qualified Code(s): I10 - Essential (primary) hypertension (5) Mitral valve stenosis, severe Priority: Secondary Status: Chronic (6) DVT prophylaxis Priority: Secondary Status: Acute Hospital course: Ms. Romero is a 72 year old female admitted for acute respiratory failure secondary to acute exacerbation of diastolic CHF. She was also in Afib with RVR. She was admitted to ICU, and started on IV lasix and amiodarone drip. She was placed on BiPAP. Cardiology and pulmonology were consulted. Home coumadin was held and she was started on heparin drip. She was weaned to room air and transitioned to cardizem. ECHO showed LVEF 60%, mild concentric LV hypertrophy, normal RV size with mild reduction in function, very severely dilated left atrium, moderately dilated right atrium, mild aortic regurgitation , moderate mitral regurgitation, several mitral stenosis, moderate-severe tricuspid regurgitation, mild pulmonic regurgitation, and severe pulmonary hypertension. She had some difficulty swallowing solid food, so GI was consulted for dysphagia. She had EGD done, which showed severe stenosis of esophagus introtous. They were unable to dilate due to respiratory distress. She was scheduled for repeat EGD, but this was cancelled due to risks. GI recommended follow up as outpatient at [facility]. She was changed to mechanically altered diet with ground meat. She was weaned to room air. She was restarted on home coumadin. She will follow up with new PCP in 2-3 days after discharge. BMP and CBC can be rechecked at that time. She will follow up with aluminum siding mechanic Dr. Sevilla as directed. She will follow up in coumadin clinic on Tuesday. She will follow up at [facility] as directed by GI. Patient has met maximum benefit of this hospitalization and will be discharged home in stable condition. Discharge discussed with: patient, nurse, case management, other (Pharmacist) - Time Spent with Patient Total time spent providing and/or coordinating discharge services: Greater than 30 minutes - Discharge Medications Home Medications: Aspirin Enteric Coated [Aspirin EC] 81 mg PO DAILY #30 tablet.dr 12/13/15 [Rx] Furosemide [Lasix] 40 mg PO DAILY #30 tablet 12/13/15 [Rx] Metoprolol [Lopressor] 100 mg PO BID #60 tablet 12/13/15 [Rx] Diltiazem CD (24hr) [Cardizem CD] 120 mg PO DAILY #30 cap.er.24h 01/14/16 [Rx] Warfarin [Coumadin] 2.5 mg PO SUMOWETHFR 02/22/18 [History] Warfarin [Coumadin] 5 mg PO TUSA 02/22/18 [History] Allergies/Adverse Reactions: 3 Allergy/AdvReac Type Severity Reaction Status Date / Time No Known Allergies Allergy Verified 12/11/15 18:23 Date of admission: 02/22/18 15:56 Primary care physician: PCP NONE Consults: 02/26/18 15:10 Consult to Civil Manager [CONS] Routine Reason for SW Consult: o2 needs, medicare/insurance 02/27/18 11:25 Consult to Gastroenterology [CONS] Routine Consulting Provider: Gastroenterology Jennifer Reason for Consult: EGD Call Completed: No 02/27/18 13:49 Consult for Pharmacy Education [CONS] Stat Reason for Consult: Coumadin dosing Call Completed: No 02/28/18 09:58 Consult to Civil Manager [CONS] Stat Reason for SW Consult: Patient needs new PCP. Please set up now. She is being discharged today. Thanks. 02/28/18 09:59 Consult to Case Management [CONS] Stat Comment: Patient needs new PCP. Discharging today. Thanks Discharging clinician: Merritt Rojo Anticipated date of discharge: 02/28/18 - Constitutional Vitals: Temp Pulse Resp BP Pulse Ox 98.0 F 72 16 134/76 96 02/28/18 07:29 02/28/18 07:29 02/28/18 07:29 02/28/18 07:29 02/28/18 07:29 General appearance: Present: cooperative, A&O X 3, pleasant, no acute distress, answers questions appropriately - Respiratory Respiratory exam: Present: CTAB. Absent: accessory muscle use, rales, rhonchi, wheezes Additional comments: Normal WOB - Cardiovascular Cardiovascular exam: Present: RRR, +S1, +S2. Absent: diastolic murmur, gallop, rubs, systolic murmur Additional comments: No BLE edema - GI/Abdominal GI/Abdominal exam: Present: normal bowel sounds, soft. Absent: distended, hepatomegaly, mass, splenomegaly, tenderness - Psychiatric Psychiatric exam: Present: normal affect, normal mood. Absent: agitated, anxious, depressed - Skin Skin exam: Present: dry, intact, warm. Absent: cyanosis, erythema, rash - Patient Status Disposition: Home, Self-Care Condition: Good Functional capacity at discharge: independent ambulation Overall status at discharge: patient is progressing back to baseline - Discharge Instructions Follow Up With: NONE,PCP [Primary Care Provider] - Additional Instructions: Follow up with PCP in 2-3 days after discharge. Recheck BMP and CBC at that time. Follow up at [facility] as directed by GI for dysphagia. Follow up in Coumadin Clinic on Tuesday. - Diet and Activity Activity: resume usual activities as tolerated Diet: low fat, low cholesterol, low salt diet, other (Cardiac Diet, Mechanically Altered Diet Ground Meat)
[2018-02-28 11:31] VITALS: BP 130/75
[2018-02-28] MEDS ORDERED: *HR* Warfarin 5 MG TABLET PO SCH (18:00)
[2018-03-01] MEDS ORDERED: Furosemide 40 MG TABLET PO SCH (09:00)
== END 2018-02-28 14:15 | disposition home or self-care (01) | DRG 291 ==
LOC: ICNU 15:56 → 2ANU 02-23 15:49
PROVIDERS: ADMIT Internal Medicine Pulmonary Disease; ATTEND Hospitalist

== ENCOUNTER 2018-04-22 13:12 | Inpatient (IN) ==
[2018-04-22] MEDS ORDERED: Naloxone 0.4 MG/ML INJ IVP PRN (15:12)
[2018-04-22] MEDS ORDERED: Ipratropium/Albuterol Neb 3 ML IH PRN (15:52)
[2018-04-22] MEDS ORDERED: amLODIPine 5 MG TABLET PO SCH (16:00)
--- NOTE | 2018-04-22 16:16 | Internal Med History&Physical ---
Date of Encounter: 04/22/18 Time of Encounter: 16:00 Internal Medicine - H&P: HPI Chief complaint: Shortness of breath of 1 day duration History of present illness: Ms. Romero is a 72 year old female with pmh of diastolic CHF, hypertension, atrial fibrillation who presents with complaints of severe shortness of breath of 1 day duration. Patient has been admitted multiple times in the past with similar complaints. She noted she began to feel progressively more short of breath since yesterday and has had severe worsening of her shortness of breath with rest and minimal exertion and that's why she came to the [facility] ER. She denies any chest pain, fevers, chills, wheezing or any other acte symptoms. Her BP was noted to be 167/125 on arrival and she had a chest xray showing diffuse pulmonary edema. She was also hypoxic to the low 80s. She got one dose of lasix, was started on a nitroglycerin drip and placed on BIPAP with improvement. When she arrived here, her BP was 166/125 and she remains on BIPAP and nitro drip. She is being admitted for further management Past Med Surg Social Fam HX - Past Medical History Medical history: atrial fibrillation, CHF, COPD, hypertension, valvular heart disease Psychiatric history: no psych history - Past Surgical History Surgical History: other Additional surgical history: Tubal Ligation - Social History Smoking Status: Never smoker Smokeless Tobacco Status: No Alcohol use: none Drug use: none - Family History Father Adopted: No Living Status: Hx Family Cardiac Disorders: Yes Internal Medicine - H&P: Meds Aspirin Enteric Coated [Aspirin EC] 81 mg PO DAILY #30 tablet.dr 12/13/15 [Rx] Furosemide [Lasix] 40 mg PO DAILY #30 tablet 12/13/15 [Rx] Metoprolol [Lopressor] 100 mg PO BID #60 tablet 12/13/15 [Rx] Diltiazem CD (24hr) [Cardizem CD] 120 mg PO DAILY #30 cap.er.24h 01/14/16 [Rx] Warfarin [Coumadin] 2.5 mg PO DAILY 02/22/18 [History] 3 Allergy/AdvReac Type Severity Reaction Status Date / Time No Known Allergies Allergy Verified 12/11/15 18:23 All Systems PM: A 10-system review of systems was performed and is negative for pertinent findings except as documented above in the HPI. - Constitutional Constitutional: no chills, no fever(s), no night sweats - EENT Eyes: no change in vision, no discharge, no pain, no photophobia Ears: no ear discharge, no ear pain, no tinnitus Nose, mouth and throat: no dysphagia, no nasal discharge, no neck pain, no sore throat - Cardiovascular Cardiovascular ROS IM: diaphoresis, dyspnea, dyspnea on exertion, no chest pain , no lightheadedness, no palpitations, no syncope - Respiratory Respiratory: dyspnea on exertion, no cough, no dyspnea, no wheezing, no excessive phlegm production - Gastrointestinal Gastrointestinal: no abdominal pain, no diarrhea, no hematemesis, no hematochezia, no melena, no nausea, no vomiting - Genitourinary Genitourinary: no change in urinary stream, no dysuria, no flank pain, no hematuria - Musculoskeletal Musculoskeletal ROS IM: no numbness, no tingling - Integumentary Integumentary IM: no rash, no unusual bruising - Neurological Neurological ROS: no confusion, no convulsions, no focal weakness, no numbness, no tingling, no tremor(s) - Hematologic/Lymphatic Hematologic/Lymphatic: no easy bruising - Constitutional Vitals: Temp Pulse Resp BP Pulse Ox 97.7 F 112 36 166/125 95 04/22/18 15:12 04/22/18 15:12 04/22/18 15:12 04/22/18 15:12 04/22/18 15:12 General appearance: Present: mild distress Exam: Mild resp distres on BIPAP - Head Head exam: Present: atraumatic, normocephalic - Eye Eye exam: Present: PERRL, conjuntiva pink, sclera anicteric Pupils: Present: PERRL - Neck Neck exam general surgery: Present: supple, trachea midline. Absent: lymphadenopathy - Respiratory Respiratory exam: Present: decreased breath sounds, respiratory distress. Absent: accessory muscle use, rales, rhonchi, wheezes - Cardiovascular Cardiovascular exam: Present: RRR, +S1, +S2. Absent: diastolic murmur, gallop, rubs, systolic murmur - GI/Abdominal GI/Abdominal exam: Present: normal bowel sounds, soft, no peritoneal signs. Absent: distended, tenderness - Extremities Exam Extremities exam: Present: warm, radial pulses palpable and symmetrical. Absent : calf tenderness, cyanotic, pedal edema - Neurological Exam Neurological exam: Present: CN II-XII intact, oriented X3, no focal deficits. Absent: pronater drift, facial droop, speech deficit - Skin Skin exam: Present: dry, intact Internal Med - H&P Results - Labs CBC & Chem 7: 04/22/18 16:09 - Assessment and plan (1) Acute respiratory failure with hypoxia Current Visit: Yes Status: Acute Assessment and plan: Pt came in with O2 sats in the 80s and severe shortness of breath. Likely secondary to flash pulmonary edema and acute worsening iof chronic diastolic CHF Started on Lasix, BIPAP and nitroglycerin drip. Monitor sats (2) Acute on chronic diastolic CHF (congestive heart failure) Current Visit: Yes Status: Acute Assessment and plan: Has evidence of diastolic CHF on last echo Continue on IV lasix. Monitor ins and outs (3) Hypertensive emergency Current Visit: Yes Status: Acute Assessment and plan: BP on arrival was 1166/125 with flash pulmonary edema. Started on nitro drip Wean off drip as tolerated and transition to po antihypertensives (4) Afib Current Visit: No Status: Acute Assessment and plan: Continue rate control with cardizem and anticoagulation Qualifiers: Atrial fibrillation type: persistent Qualified Code(s): I48.1 - Persistent atrial fibrillation (5) Flash pulmonary edema Current Visit: Yes Status: Acute Assessment and plan: See plan for hypertensive emergency (6) Mitral valve stenosis, severe Current Visit: No Status: Chronic Assessment and plan: Continue medical management (7) DVT prophylaxis Current Visit: No Status: Acute Assessment and plan: Continue on warfarin - Time Spent With Patient Total time spent is greater than 50% in coordination of care (as documented) at patient's floor/unit and/or counseling patient:
[2018-04-22 16:27] LABS: INR 1.2
[2018-04-22 16:39] LABS: BUN/Creatinine Ratio 17 (6-26); Blood Urea Nitrogen 19 mg/dL (8-23); Calcium 9.1 mg/dL (8.6-10.3); Carbon Dioxide 24 mEq/L (23-29); Chloride 103 mEq/L (98-107); Glucose 111 mg/dL (70-105); Osmolality,Calculated 289 (280-300); Potassium 3.5 mEq/L (3.5-5.1); Sodium 138 mEq/L (136-145); eGFR For Non-African Americans 49 (> 60)
[2018-04-22 16:57] LABS: Troponin I < 0.03 ng/mL (< 0.04)
[2018-04-22] MEDS: Aspirin 81 MG TAB.CHEW PO SCH (17:02)
[2018-04-22] MEDS: Lisinopril 20 MG TABLET PO SCH (17:02)
[2018-04-22] MEDS: Furosemide 40 MG/4 ML VIAL IVP SCH (17:02)
[2018-04-22] MEDS: Nitroglycerin 25 MG/250 ML INFUS..BTL IVC SCH (17:03)
[2018-04-22] MEDS ORDERED: *HR* Warfarin 4 MG TABLET PO ONE (18:00)
[2018-04-22] MEDS ORDERED: Warfarin perPT PO PRN (18:00)
[2018-04-22] MEDS: Metoprolol 100 MG TABLET PO SCH (19:30)
[2018-04-22] MEDS ORDERED: Simethicone 80 MG TAB.CHEW PO PRN (21:07)
[2018-04-23 01:07] LABS: Basophils % 0.3 %; Eosinophils # 0.1 K/mcL (0.0-0.6); Eosinophils % 0.7 %; Hematocrit 38.1 % (35.3-44.9); Hemoglobin 12.2 g/dL (11.5-15.4); Immature Granulocytes % 0.4 % (0-4); Lymphocytes % 6.7 %; Mean Corpuscular Hemoglobin 29.6 pg (28.0-33.3); Mean Corpuscular Volume 92.5 fL (83.0-100.0); Mean Platelet Volume 9.2 fL (9.4-12.4); Monocytes # 0.6 K/mcL (0.0-1.3); Monocytes % 3.8 %; Neutrophils # 13.4 K/mcL (1.6-8.9); Platelet Count 316 K/mcL (140-400); Red Blood Count 4.12 M/mcL (3.82-4.97); Red Cell Distribution Width 15.9 % (11.5-14.5); Segmented Neutrophils % 88.1 %
[2018-04-23 01:12] LABS: INR 1.2
[2018-04-23 01:26] LABS: BUN/Creatinine Ratio 19 (6-26); Blood Urea Nitrogen 20 mg/dL (8-23); Calcium 9.3 mg/dL (8.6-10.3); Carbon Dioxide 30 mEq/L (23-29); Chloride 100 mEq/L (98-107); Glucose 111 mg/dL (70-105); Magnesium 2.2 mg/dL (1.6-2.6); Osmolality,Calculated 291 (280-300); Phosphorous 3.5 mg/dL (2.7-4.5); Potassium 3.6 mEq/L (3.5-5.1); Sodium 139 mEq/L (136-145); eGFR For Non-African Americans 51 (> 60)
--- NOTE | 2018-04-23 07:20 | Internal Med Progress Note ---
Hospitalist Progress Note - Encounter Date of Encounter: 04/23/18 Time of Encounter: 07:20 - Exam Vitals: Temp Pulse Resp BP Pulse Ox 97.7 F 79 16 99/55 98 04/23/18 03:59 04/23/18 03:59 04/23/18 03:59 04/23/18 03:59 04/23/18 03:59 Exam: Gen - Awake, alert, oriented x 3, no acute distress HEENT - NCAT, PERRLA, EOMI, hearing grossly intact, oropharynx benign CV - RRR, normal S1 and S2, no M/R/G, no BLE edema Resp - Normal WOB, CTAB, no W/R/R, on BIPAP GI - Soft, NT/ND, no masses, normal bowel sounds, Skin - Warm, dry, no rashes/lesions/ulcers Psych - Normal mood and affect, no depression or anxietyP - Assessment and Plan (1) Acute respiratory failure with hypoxia Current Visit: Yes Status: Acute Assessment and Plan: Pt came in with O2 sats in the 80s and severe shortness of breath. Likely secondary to flash pulmonary edema and acute worsening of chronic diastolic CHF Started on Lasix, BIPAP and nitroglycerin drip. Improved this am (2) Acute on chronic diastolic CHF (congestive heart failure) Current Visit: Yes Status: Acute Assessment and Plan: Has evidence of diastolic CHF on last echo Continue on IV lasix. Monitor ins and outs (3) Hypertensive emergency Current Visit: Yes Status: Acute Assessment and Plan: BP on arrival was 1166/125 with flash pulmonary edema. Has been weaned off nitro drip and transitioned to po antihypertensives (4) Afib Current Visit: No Status: Acute Assessment and Plan: Continue rate control with cardizem and anticoagulation (5) Flash pulmonary edema Current Visit: Yes Status: Acute Assessment and Plan: See plan for hypertensive emergency (6) Mitral valve stenosis, severe Current Visit: No Status: Chronic Assessment and Plan: Continue medical management (7) DVT prophylaxis Current Visit: No Status: Acute Assessment and Plan: Continue on warfarin (8) Leukocytosis Current Visit: Yes Status: Acute Assessment and Plan: Query pneumonia. Started on levaquin - Time Spent with Patient Total time spent is greater than 50% in coordination of care (as documented) at patient's floor/unit and/or counseling patient: Internal Medicine: Result - Labs CBC & Chem 7: 04/23/18 00:36 04/23/18 00:36 Labs: Short CBC 04/23/18 Range/Units 00:36 WBC 15.2 H (4.3-11.1) K/mcL Hgb 12.2 (11.5-15.4) g/dL Hct 38.1 (35.3-44.9) % Plt Count 316 (140-400) K/mcL Neutrophils # 13.4 H (1.6-8.9) K/mcL BMP 04/22/18 04/23/18 16:09 00:36 Sodium 138 139 Potassium 3.5 3.6 Chloride 103 100 Carbon Dioxide 24 30 H BUN 19 20 Creatinine 1.11 1.07 Glucose 111 H 111 H Calcium 9.1 9.3 Cardiac Enzymes 04/22/18 04/23/18 Range/Units 16:09 00:36 Troponin I < 0.03 0.03 (< 0.04) ng/mL - ABG Interpretation ABG results: PT/INR, D-dimer PT 13.0 Seconds (9.4-12.1) H 04/23/18 00:36 - Impressions Impressions Chest X-Ray 04/22/18 15:48 IMPRESSION: Stable appearance of bilateral perihilar airspace opacities, with an appearance favoring pulmonary edema. Appearance is similar to comparison from earlier today, although appears increased in comparison to 02/23/2018. D/ / Abdoulaye Khan MD / Abdoulaye Khan MD Interpreting Provider: Abdoulaye Khan MD Consult Discharge Plan - Plan Referrals: NONE,PCP [Primary Care Provider] - (4) Afib Qualifiers: Atrial fibrillation type: persistent Qualified Code(s): I48.1 - Persistent atrial fibrillation (8) Leukocytosis Qualifiers: Leukocytosis type: unspecified Qualified Code(s): D72.829 - Elevated white blood cell count, unspecified
[2018-04-23] MEDS: Diltiazem CD (24hr) 120 MG CAPSULE PO SCH (07:49)
[2018-04-23] MEDS: Metoprolol 100 MG TABLET PO SCH ×2 (07:49→20:44)
[2018-04-23] MEDS: Lisinopril 20 MG TABLET PO SCH (07:49)
[2018-04-23] MEDS: Aspirin 81 MG TAB.CHEW PO SCH (07:50)
[2018-04-23] MEDS: Furosemide 40 MG/4 ML VIAL IVP SCH ×2 (07:50→16:35)
[2018-04-23] MEDS ORDERED: Levofloxacin 750 MG/150 ML 750 MG/150 ML BAG IVPB SCH (09:00)
[2018-04-23 10:43] LABS: Bilirubin,Urine Negative (Negative); Blood,Urine Negative (Negative); Clarity,Urine Clear (Clear); Color,Urine Yellow (Yellow); Glucose,Urine (UA) Normal (Normal); Ketones,Urine Negative (Negative); Leukocyte Esterase,Urine Negative (Negative); Nitrite,Urine Negative (Negative); PH,Urine 7.5 pH Units (5.0-8.0); Protein,Urine Negative (Neg-Trace); Specific Gravity,Urine 1.017 (1.010-1.025)
[2018-04-23] MEDS: Nitroglycerin 25 MG/250 ML INFUS..BTL IVC SCH (16:18)
[2018-04-23] MEDS ORDERED: *HR* Warfarin 4 MG TABLET PO ONE (18:00)
[2018-04-24 04:07] LABS: INR 1.4; Prothrombin Time 16.3 Seconds (9.4-12.1)
[2018-04-24 06:59] VITALS: BP 134/54
[2018-04-24] MEDS: Lisinopril 20 MG TABLET PO SCH (07:30)
[2018-04-24] MEDS: Furosemide 40 MG/4 ML VIAL IVP SCH (07:30)
[2018-04-24] MEDS: Aspirin 81 MG TAB.CHEW PO SCH (07:30)
[2018-04-24] MEDS: Diltiazem CD (24hr) 120 MG CAPSULE PO SCH (07:30)
[2018-04-24] MEDS: Metoprolol 100 MG TABLET PO SCH (07:30)
[2018-04-24 08:25] LABS: Basophils % 0.4 %; Eosinophils # 0.4 K/mcL (0.0-0.6); Eosinophils % 4.4 %; Hematocrit 41.9 % (35.3-44.9); Hemoglobin 12.9 g/dL (11.5-15.4); Immature Granulocytes % 0.4 % (0-4); Lymphocytes # 1.1 K/mcL (0.6-4.6); Mean Corpuscular HGB Conc 30.8 g/dL (31.6-35.5); Mean Corpuscular Hemoglobin 28.8 pg (28.0-33.3); Mean Corpuscular Volume 93.5 fL (83.0-100.0); Mean Platelet Volume 9.5 fL (9.4-12.4); Monocytes # 0.6 K/mcL (0.0-1.3); Monocytes % 5.9 %; Neutrophils # 7.5 K/mcL (1.6-8.9); Platelet Count 312 K/mcL (140-400); Red Blood Count 4.48 M/mcL (3.82-4.97); Red Cell Distribution Width 15.8 % (11.5-14.5); Segmented Neutrophils % 77.9 %
--- NOTE | 2018-04-24 08:32 | Discharge Summary ---
Orders not resulted at time of discharge: Pending orders 04/23/18 07:37 Culture,Blood [BC] Routine 04/25/18 04:00 INR/PT [Prothrombin Time INR] [COAG] AM 0400 04/26/18 04:00 INR/PT [Prothrombin Time INR] [COAG] AM 0400 04/27/18 04:00 INR/PT [Prothrombin Time INR] [COAG] AM 0400 04/28/18 04:00 INR/PT [Prothrombin Time INR] [COAG] AM 0400 04/29/18 04:00 INR/PT [Prothrombin Time INR] [COAG] AM 0400 Date of Encounter: 04/24/18 Time of Encounter: 08:30 - Discharge Diagnosis (1) Acute respiratory failure with hypoxia Priority: Primary Status: Acute Assessment and Plan: 72 year old female with pmh of diastolic CHF, hypertension, atrial fibrillation who presents with complaints of severe shortness of breath of 1 day duration. Patient has been admitted multiple times in the past with similar complaints. She noted she began to feel progressively more short of breath since yesterday and has had severe worsening of her shortness of breath with rest and minimal exertion and that's why she came to the [facility] ER. She denies any chest pain, fevers, chills, wheezing or any other acte symptomsPt came in with O2 sats in the 80s and severe shortness of breath. She was assessed with acute hypoxic respiratory failure likely secondary to hypertensive emergency with flash pulmonary edema and acute worsening of chronic diastolic CHF. She was started on Lasix, BIPAP and nitroglycerin drip. She was successfully weaned off BIPAP to room air and off nitroglycerin drip to oral antihypertensives. She also had a leukocytosis and opacities on chest xray and was treated for a pneumonia with levaquin. With a sooner than anticipated improvement, she was discharged in a stable condition (2) Acute on chronic diastolic CHF (congestive heart failure) Priority: Primary Status: Acute (3) Hypertensive emergency Priority: Secondary Status: Acute (4) Afib Priority: Primary Status: Acute Qualifiers: Atrial fibrillation type: persistent Qualified Code(s): I48.1 - Persistent atrial fibrillation (5) Flash pulmonary edema Priority: Primary Status: Acute (6) Mitral valve stenosis, severe Priority: Primary Status: Chronic (7) DVT prophylaxis Priority: Secondary Status: Acute (8) Leukocytosis Priority: Primary Status: Acute Qualifiers: Leukocytosis type: unspecified Qualified Code(s): D72.829 - Elevated white blood cell count, unspecified Hospital course: Ms. Romero is a 72 year old female - Time Spent with Patient Total time spent providing and/or coordinating discharge services: - Discharge Medications Prescriptions: Furosemide [Lasix] 40 mg PO BID 30 Days #60 tablet Levofloxacin [Levaquin] 750 mg PO DAILY 3 Days #3 tablet Lisinopril [Zestril] 20 mg PO DAILY #30 tablet Home Medications: Aspirin Enteric Coated [Aspirin EC] 81 mg PO DAILY #30 tablet.dr 12/13/15 [Rx] Metoprolol [Lopressor] 100 mg PO BID #60 tablet 12/13/15 [Rx] Diltiazem CD (24hr) [Cardizem CD] 120 mg PO DAILY #30 cap.er.24h 01/14/16 [Rx] Warfarin [Coumadin] 2.5 mg PO DAILY 02/22/18 [History] Furosemide [Lasix] 40 mg PO BID 30 Days #60 tablet 04/24/18 [Rx] Levofloxacin [Levaquin] 750 mg PO DAILY 3 Days #3 tablet 04/24/18 [Rx] Lisinopril [Zestril] 20 mg PO DAILY #30 tablet 04/24/18 [Rx] Allergies/Adverse Reactions: 3 Allergy/AdvReac Type Severity Reaction Status Date / Time No Known Allergies Allergy Verified 12/11/15 18:23 Date of admission: 04/22/18 14:53 Primary care physician: PCP NONE - Constitutional Vitals: Temp Pulse Resp BP Pulse Ox 97.9 F 70 18 134/54 99 04/24/18 06:55 04/24/18 06:55 04/24/18 06:55 04/24/18 06:55 04/24/18 06:55 General appearance: Present: mild distress Exam: Gen - Awake, alert, oriented x 3, no acute distress HEENT - NCAT, PERRLA, EOMI, hearing grossly intact, oropharynx benign CV - RRR, normal S1 and S2, no M/R/G, no BLE edema Resp - Normal WOB, CTAB, no W/R/R, on BIPAP GI - Soft, NT/ND, no masses, normal bowel sounds, Skin - Warm, dry, no rashes/lesions/ulcers Psych - Normal mood and affect, no depression or anxietyP - Patient Status Disposition: Home, Self-Care - Discharge Instructions Instructions: Lisinopril (By mouth), Furosemide (By mouth), Levofloxacin (By mouth) Follow Up With: Zoltan Sevilla MD [Partnered Physician] - 05/19/18 11:20 am Kenroy Cesar [Resident] - 05/03/18 1:00 pm NONE,PCP [Primary Care Provider] -
[2018-04-24] MEDS ORDERED: *HR* Warfarin 5 MG TABLET PO ONE (18:00)
== END 2018-04-24 12:09 | disposition home or self-care (01) | DRG 291 ==
LOC: 2NNU 14:53
PROVIDERS: ADMIT Internal Medicine; ATTEND Internal Medicine

== ENCOUNTER 2021-01-20 19:19 | Observation (INO) ==
[2021-01-20] MEDS ORDERED: Piperacillin/Tazobactam 3.375 GM in 0.9 % Sodium Chloride Mini Bag 100 ML IVPB ONE (21:52)
[2021-01-20 22:23] LABS: Basophils % 0.3 %; Eosinophils # 0.1 K/mcL (0.0-0.6); Eosinophils % 0.7 %; Hematocrit 42.5 % (35.3-44.9); Hemoglobin 13.2 g/dL (11.5-15.4); Immature Granulocytes % 0.6 % (0-4); Lymphocytes % 10.4 %; Mean Corpuscular HGB Conc 31.1 g/dL (31.6-35.5); Mean Corpuscular Hemoglobin 27.7 pg (28.0-33.3); Mean Corpuscular Volume 89.3 fL (83.0-100.0); Mean Platelet Volume 9.3 fL (9.4-12.4); Monocytes # 0.7 K/mcL (0.0-1.3); Monocytes % 7.5 %; Platelet Count 424 K/mcL (140-400); Red Blood Count 4.76 M/mcL (3.82-4.97); Red Cell Distribution Width 17.2 % (11.5-14.5); Segmented Neutrophils % 80.5 %; White Blood Count 9.9 K/mcL (4.3-11.1)
[2021-01-20 22:36] LABS: Calcium 9.7 mg/dL (8.6-10.3); Potassium 3.3 mEq/L (3.5-5.1)
[2021-01-21] MEDS ORDERED: Naloxone 0.4 MG/ML INJ IVP PRN (01:55)
[2021-01-21] MEDS ORDERED: Vancomycin 1 EACH in 0.9 % Sodium Chloride 250 ML IVPB SCH (02:00)
[2021-01-21] MEDS ORDERED: Gadolinium Contrast Agent (WT Based) IV PRN (06:15)
[2021-01-21 06:42] LABS: Hematocrit 36.8 % (35.3-44.9); Hemoglobin 11.7 g/dL (11.5-15.4); Mean Corpuscular HGB Conc 31.8 g/dL (31.6-35.5); Mean Corpuscular Hemoglobin 28.5 pg (28.0-33.3); Mean Corpuscular Volume 89.5 fL (83.0-100.0); Mean Platelet Volume 9.7 fL (9.4-12.4); Platelet Count 382 K/mcL (140-400); Red Blood Count 4.11 M/mcL (3.82-4.97); White Blood Count 10.7 K/mcL (4.3-11.1)
[2021-01-21 07:04] LABS: Calcium 8.8 mg/dL (8.6-10.3); Potassium 3.9 mEq/L (3.5-5.1)
[2021-01-21 07:21] LABS: INR 1.2; Prothrombin Time 13.9 Seconds (9.4-12.1)
[2021-01-21 07:24] LABS: Activated Partial Thrombo Time 27.8 Seconds (26.0-36.0)
[2021-01-21] MEDS: Piperacillin/Tazobactam 3.375 GM in 0.9 % Sodium Chloride Mini Bag 100 ML IVPB SCH ×2 (07:33→15:52)
[2021-01-21 15:45] LABS: C-Reactive Protein 19 mg/L (Less than 10); Vancomycin,Random 13 mcg/mL
[2021-01-21 19:00] VITALS: BP 103/70
[2021-01-21] MEDS ORDERED: Vancomycin 500 MG in 0.9 % Sodium Chloride Mini Bag 100 ML IVPB ONE (23:00)
[2021-01-22] MEDS ORDERED: Aspirin Enteric Coated 81 MG Tablet PO SCH (09:00)
[2021-01-22] MEDS ORDERED: Metoprolol 100 MG TABLET PO SCH (09:00)
== END 2021-01-21 20:19 | disposition left against medical advice (07) ==
LOC: 3BNU 19:19 → EMEROOARM 19:19 → 3BNU 01-21 01:54
PROVIDERS: ADMIT Internal Medicine; ATTEND Internal Medicine

== ENCOUNTER 2021-05-30 15:35 | Inpatient (IN) ==
[2021-05-30 16:22] LABS: Basophils % 0.3 %; Eosinophils % 0.1 %; Hematocrit 41.6 % (35.3-44.9); Hemoglobin 12.5 g/dL (11.5-15.4); Immature Granulocytes % 0.4 % (0-4); Lymphocytes # 0.8 K/mcL (0.6-4.6); Lymphocytes % 7.3 %; Mean Corpuscular Hemoglobin 25.4 pg (28.0-33.3); Mean Corpuscular Volume 84.6 fL (83.0-100.0); Monocytes # 0.9 K/mcL (0.0-1.3); Monocytes % 8.8 %; Neutrophils # 8.8 K/mcL (1.6-8.9); Platelet Count 342 K/mcL (140-400); Red Blood Count 4.92 M/mcL (3.82-4.97); Red Cell Distribution Width 18.4 % (11.5-14.5); Segmented Neutrophils % 83.1 %; White Blood Count 10.6 K/mcL (4.3-11.1)
[2021-05-30 16:41] LABS: INR 1.8; Prothrombin Time 20.2 Seconds (9.4-12.1)
[2021-05-30] MEDS ORDERED: Furosemide 40 MG/4 ML VIAL IVP ONE (17:35)
[2021-05-30 17:38] LABS: Bacteria,Urine Few per hpf (None-Few); Bilirubin,Urine Small (Negative); Blood,Urine Negative (Negative); Calcium Oxalate Crystals,Urine Present per hpf; Clarity,Urine Ex.Turbid (Clear); Color,Urine Dark-Yellow (Yellow); Glucose,Urine (UA) Normal (Normal); Hyaline Casts,Urine Many per lpf (None Seen); Ketones,Urine Negative (Negative); Leukocyte Esterase,Urine Small (Negative); Mucus,Urine Many per lpf (None-Few); Nitrite,Urine Negative (Negative); Protein,Urine >=300 mg/dL (Neg-Trace); Specific Gravity,Urine > 1.030 (1.010-1.025); Squamous Epithelial Cell,Urine Few per hpf (None-Few); WBC,Urine 15-30 per hpf (0-3)
[2021-05-30 18:14] LABS: Albumin 4.1 g/dL (3.5-5.7); Albumin/Globulin Ratio 1.2 (1.1-2.2); Bilirubin,Total 2.2 mg/dL (0.3-1.0); Calcium 9.9 mg/dL (8.6-10.3); Globulin 3.4 g/dL (2.4-3.5); Potassium 4.4 mEq/L (3.5-5.1); Total Protein 7.5 g/dL (6.4-8.9)
[2021-05-30] MEDS ORDERED: Perflutren Lipid Microsphere 1.3 ML in 0.9 % Sodium Chloride 8.7 ML IVP PRN (19:53)
[2021-05-30] MEDS ORDERED: Acetaminophen 325 MG TABLET PO PRN (20:10)
[2021-05-30] MEDS ORDERED: Naloxone 0.4 MG/ML INJ IVP PRN (20:10)
[2021-05-30] MEDS ORDERED: Ondansetron 4 MG/2 ML VIAL IVP PRN (20:10)
[2021-05-30 21:44] LABS: ABG Base Excess -2 mEq/L (-2 to 3); ABG HCO3 21 mEq/L (21-27); ABG Oxygen Saturation 98 % (95-98); ABG PCO2 32 mmHg (35-45); ABG PH 7.43 pH Units (7.32-7.45); ABG PO2 93 mmHg (85-104); ABG TCO2 22 mEq/L (20-26)
[2021-05-30] MEDS ORDERED: *HR* Heparin 5,000 UNIT/ML VIAL IVP ONE (23:08)
[2021-05-30] MEDS ORDERED: *HR* Heparin 5,000 UNIT/ML VIAL IVP PRN ×2 (23:08)
[2021-05-30] MEDS ORDERED: cefTRIAXone 1,000 MG in 0.9 % Sodium Chloride Mini Bag 100 ML IVPB SCH (23:13)
[2021-05-30] MEDS ORDERED: Heparin 25,000UNIT/250ML 1/2NS 25,000 UNIT/250 ML IV.SOLN IVC SCH (23:15)
[2021-05-30] MEDS ORDERED: Nitroglycerin 0.4 MG TAB.SUBL SL PRN (23:43)
[2021-05-30] MEDS ORDERED: Morphine Sulfate 2 MG/ML SYRINGE IVP PRN (23:44)
[2021-05-31] MEDS: Aspirin Enteric Coated 81 MG Tablet PO SCH ×2 (01:07→07:55)
[2021-05-31] MEDS ORDERED: Furosemide 20 MG TABLET PO ONE (03:25)
[2021-05-31 03:44] LABS: Adenovirus Not Detected (Not Detect); Bordetella Pertussis Not Detected (Not Detect); Chlamydophila pneumoniae Not Detected (Not Detect); Coronavirus 229E Not Detected (Not Detect); Coronavirus HKU1 Not Detected (Not Detect); Coronavirus NL63 Not Detected (Not Detect); Coronavirus OC43 Not Detected (Not Detect); Human Metapneumovirus Not Detected (Not Detect); Human Rhinovirus/Enterovirus Not Detected (Not Detect); Influenza A Subtype 2009 H1 Not Detected (Not Detect); Influenza B Not Detected (Not Detect); Mycoplasma pneumoniae Not Detected (Not Detect); Parainfluenza Virus 1 Not Detected (Not Detect); Parainfluenza Virus 2 Not Detected (Not Detect); Parainfluenza Virus 3 Not Detected (Not Detect); Parainfluenza Virus 4 Not Detected (Not Detect); Respiratory Syncytial Virus Not Detected (Not Detect); SARS-CoV-2 Not Detected (Not Detect)
[2021-05-31] MEDS ORDERED: Furosemide 20 MG/2 ML VIAL IVP SCH ×2 (06:00→09:00)
[2021-05-31] MEDS: *HR* Enoxaparin 60 MG/0.6 ML SYRINGE SQ SCH (07:55)
[2021-05-31] MEDS ORDERED: Metoprolol 100 MG TABLET PO SCH (09:00)
[2021-05-31] MEDS: amLODIPine 5 MG TABLET PO SCH (10:55)
[2021-05-31] MEDS: CEFTRIAXONE IM SCH (16:20)
[2021-05-31] MEDS: WATER FOR INJ IM SCH (16:20)
[2021-05-31 16:52] LABS: Hematocrit 38.2 % (35.3-44.9); Hemoglobin 11.3 g/dL (11.5-15.4); Mean Corpuscular HGB Conc 29.6 g/dL (31.6-35.5); Mean Corpuscular Hemoglobin 25.3 pg (28.0-33.3); Mean Corpuscular Volume 85.5 fL (83.0-100.0); Mean Platelet Volume 9.9 fL (9.4-12.4); Platelet Count 300 K/mcL (140-400); Red Blood Count 4.47 M/mcL (3.82-4.97); White Blood Count 11.8 K/mcL (4.3-11.1)
[2021-05-31 16:52] LABS: Estimated Average Glucose 128 mg/dl; Hemoglobin A1C 6.1 %
[2021-05-31 17:02] LABS: INR 2.2; Prothrombin Time 24.2 Seconds (9.4-12.1)
[2021-05-31 17:05] LABS: Activated Partial Thrombo Time 39.6 Seconds (26.0-36.0)
[2021-05-31 17:12] LABS: Calcium 8.9 mg/dL (8.6-10.3); Chol/HDL Ratio 4.3 (0-4.9); Magnesium 1.9 mg/dL (1.6-2.6)
[2021-05-31] MEDS: Furosemide 40 MG/4 ML VIAL IVP SCH (20:39)
[2021-06-01] MEDS: CEFTRIAXONE IM SCH ×2 (03:13→17:04)
[2021-06-01] MEDS: WATER FOR INJ IM SCH ×2 (03:13→17:04)
[2021-06-01] MEDS: *HR* Enoxaparin 60 MG/0.6 ML SYRINGE SQ SCH (05:22)
[2021-06-01 05:43] LABS: Hematocrit 36.4 % (35.3-44.9); Hemoglobin 10.6 g/dL (11.5-15.4); Mean Corpuscular HGB Conc 29.1 g/dL (31.6-35.5); Mean Corpuscular Hemoglobin 24.9 pg (28.0-33.3); Mean Corpuscular Volume 85.6 fL (83.0-100.0); Mean Platelet Volume 9.8 fL (9.4-12.4); Platelet Count 260 K/mcL (140-400); Red Blood Count 4.25 M/mcL (3.82-4.97); Red Cell Distribution Width 17.9 % (11.5-14.5); White Blood Count 13.1 K/mcL (4.3-11.1)
[2021-06-01 06:04] LABS: Calcium 8.6 mg/dL (8.6-10.3); Potassium 3.5 mEq/L (3.5-5.1)
[2021-06-01] MEDS: Aspirin Enteric Coated 81 MG Tablet PO SCH (07:41)
[2021-06-01] MEDS: amLODIPine 5 MG TABLET PO SCH (07:41)
[2021-06-01] MEDS: Furosemide 40 MG/4 ML VIAL IVP SCH ×2 (07:42→12:22)
[2021-06-01] MEDS ORDERED: *HR* Phytonadione 10 MG/ML AMPUL SQ ONE (10:50)
[2021-06-01 14:23] LABS: INR 1.7; Prothrombin Time 19.1 Seconds (9.4-12.1)
[2021-06-01] MEDS ORDERED: WATER FOR INJ IVPB SCH (15:00)
[2021-06-01] MEDS ORDERED: CEFTRIAXONE IVPB SCH (15:00)
[2021-06-01] MEDS ORDERED: cefTRIAXone 1,000 MG in 0.9 % Sodium Chloride Mini Bag 100 ML IVPB SCH (15:00)
[2021-06-01] MEDS: *HR* Warfarin 2.5 MG TABLET PO ONE (18:15)
[2021-06-02 05:06] LABS: Basophils % 0.1 %; Eosinophils % 0.3 %; Hematocrit 35.3 % (35.3-44.9); Hemoglobin 10.6 g/dL (11.5-15.4); Immature Granulocytes % 0.5 % (0-4); Lymphocytes # 0.7 K/mcL (0.6-4.6); Lymphocytes % 4.3 %; Mean Corpuscular Hemoglobin 25.2 pg (28.0-33.3); Mean Corpuscular Volume 83.8 fL (83.0-100.0); Mean Platelet Volume 10.4 fL (9.4-12.4); Monocytes # 1.6 K/mcL (0.0-1.3); Monocytes % 10.4 %; Neutrophils # 12.6 K/mcL (1.6-8.9); Platelet Count 262 K/mcL (140-400); Red Blood Count 4.21 M/mcL (3.82-4.97); Red Cell Distribution Width 17.7 % (11.5-14.5); Segmented Neutrophils % 84.4 %
[2021-06-02 05:24] LABS: INR 1.7; Prothrombin Time 18.8 Seconds (9.4-12.1)
[2021-06-02 05:26] LABS: Calcium 8.6 mg/dL (8.6-10.3); Magnesium 1.7 mg/dL (1.6-2.6); Phosphorous 3.3 mg/dL (2.7-4.5); Potassium 3.3 mEq/L (3.5-5.1)
[2021-06-02] MEDS ORDERED: Furosemide 40 MG/4 ML VIAL IVP SCH (08:00)
[2021-06-02] MEDS: Aspirin Enteric Coated 81 MG Tablet PO SCH (08:09)
[2021-06-02] MEDS: cefTRIAXone 1,000 MG in 0.9 % Sodium Chloride Mini Bag 100 ML IVPB SCH (13:59)
[2021-06-02] MEDS ORDERED: *HR* HYDROcodone/Acet 5/325 mg TABLET PO PRN (16:51)
[2021-06-02] MEDS ORDERED: *HR* Warfarin 2.5 MG TABLET PO ONE (18:00)
[2021-06-02] MEDS: Warfarin perPT PO SCH (20:47)
[2021-06-03] MEDS ORDERED: polyethylene glycoL 3350 17 GM POWD.PACK PO STA (03:55)
[2021-06-03 03:59] LABS: Calcium 9.3 mg/dL (8.6-10.3); Potassium 4.1 mEq/L (3.5-5.1)
[2021-06-03 04:05] LABS: INR 1.5; Prothrombin Time 17.2 Seconds (9.4-12.1)
[2021-06-03] MEDS: Aspirin Enteric Coated 81 MG Tablet PO SCH (08:05)
[2021-06-03] MEDS ORDERED: Furosemide 40 MG/4 ML VIAL IVP SCH ×2 (09:00)
[2021-06-03] MEDS ORDERED: Bisacodyl 10 MG RECTAL SUPPOSITORY RC PRN ×2 (12:04→12:06)
[2021-06-03] MEDS: cefTRIAXone 1,000 MG in 0.9 % Sodium Chloride Mini Bag 100 ML IVPB SCH (15:20)
[2021-06-03] MEDS ORDERED: *HR* Warfarin 2.5 MG TABLET PO ONE (18:00)
[2021-06-03] MEDS: Warfarin perPT PO SCH (18:20)
[2021-06-03] MEDS: polyethylene glycoL 3350 17 GM POWD.PACK PO SCH (20:48)
[2021-06-03] MEDS: *HR* Warfarin 2.5 MG TABLET PO ONE (20:48)
[2021-06-04] MEDS ORDERED: Furosemide 40 MG TABLET PO PRN (08:16)
[2021-06-04] MEDS ORDERED: Furosemide 40 MG TABLET PO SCH (09:00)
[2021-06-04] MEDS: Aspirin Enteric Coated 81 MG Tablet PO SCH (09:01)
[2021-06-04] MEDS: polyethylene glycoL 3350 17 GM POWD.PACK PO SCH (09:02)
[2021-06-04 15:54] VITALS: BP 114/56; PULSE 70; TEMP 98.3; O2SAT 92
== END 2021-06-04 18:26 | disposition hospice, home (50) | DRG 280 ==
LOC: 2NENU 15:35 → EMEROOARM 15:35 → SUATTDRO 19:48 → 2NENU 20:44 → SUATTDRO 05-31 15:32
PROVIDERS: ADMIT Internal Medicine; ATTEND Internal Medicine